=== PATIENT | female | born 1970 | race Caucasian/White ===

== ENCOUNTER → 2017-05-29 | Outpatient (CLI) | payer OTHER ==
--- NOTE | 2017-05-29 12:46 | XR ---
EXAMINATION TYPE: XR lumbosacral spine min 4V , 5 VIEWS DATE OF EXAM ORDERED: 05/29/2017 HISTORY: [id number] lbp,ddd. COMPARISON: None. FINDINGS: Vertebral body height and alignment are maintained. There is no spondylolysis or spondylol isthesis. There is mild hypertrophic spondylosis at T12-L1 and L1-2. The facets are unremarkable. The pedicles are intact. IMPRESSION: 1. NO ACUTE OSSEOUS LESION. 2. MINIMAL DEGENERATIVE CHANGE.
== END | disposition home or self-care (01) ==
LOC: RADXRYALE 11:30
PROVIDERS: ATTEND Family Medicine
DX: M47.817 Spondylosis without myelopathy or radiculopathy, lumbosacral region (principal)
CPT/HCPCS: 72110

== ENCOUNTER → 2017-12-09 | Outpatient (CLI) | payer OTHER ==
--- NOTE | 2017-12-09 15:43 | XR ---
EXAMINATION TYPE: XR chest 2V DATE OF EXAM: 12/09/2017 COMPARISON: NONE TECHNIQUE: PA and lateral views submitted. HISTORY: Cough and fever FINDINGS: The lungs are clear and there is no pneumothorax, pleural effusion, or focal pneumonia. Hypertrophi c and degenerative change of the spine. IMPRESSION: 1. No acute process.
== END | disposition home or self-care (01) ==
LOC: RADXRYALE 14:06
PROVIDERS: ATTEND Physician Assistant Medical
DX: R05 Cough (principal)
CPT/HCPCS: 71046

== ENCOUNTER → 2018-08-13 | Outpatient (CLI) | payer OTHER ==
[2018-08-13 16:26] LABS: Progesterone 0.3 ng/mL
== END | disposition home or self-care (01) ==
LOC: LABWHC1 11:14
PROVIDERS: ATTEND Obstetrics & Gynecology
DX: N94.3 Premenstrual tension syndrome (principal); N92.6 Irregular menstruation, unspecified
CPT/HCPCS: 36415; 82670; 83001; 84144; 84403

== ENCOUNTER → 2018-09-22 | Outpatient (CLI) | payer OTHER ==
--- NOTE | 2018-09-22 14:03 | MR ---
EXAMINATION TYPE: MR cervical spine wo con DATE OF EXAM: 09/22/2018 COMPARISON: None HISTORY: Cervicalgia TECHNIQUE: Multiplanar, multisequence images of the cervical spine were acquired. C2-C3: No evidence for degenerative disc disease. No disc bulge/herniation or protrusion. No Canal stenosis. Foramina are patent bilaterally. C3-C4: No evidence for degenerative disc disease. No disc bulge/herniation or protrusion. No Canal stenosis. Foramina are patent bilaterally. C4-C5: No disc bulge/herniation or protrusion. No Canal stenosis. Foramina are patent bilaterally. C5-C6: Posterior extension endplate disc complex causes minimal anterior mass effect on the thecal sa c. Lateral extension endplate disc complex encroaches mildly on the foramina left greater than right. C6-C7: Small posterior disc bulge is eccentric towards the left causing slight anterior lateral mass effect on the thecal sac. Only mild left-sided foraminal encroachment, no significant central stenosi s. C7-T1: No evidence for degenerative disc disease. No disc bulge/herniation or protrusion. No Canal stenosis. Foramina are patent bilaterally. Cervical segments are intact. There is normal alignment. Cervical spinal cord is of normal signal. Craniovertebral junction relationships are within normal limits. There is a slight spinal curvature . Loss of disc height and signal is present at C5-6 and C4-5, C6-7 compatible disc desiccation and de generative disc disease, there is some mild spondylosis, possible small hemangioma C7 vertebral body IMPRESSION: Mild degenerative disc disease and foraminal encroachment.
== END | disposition home or self-care (01) ==
LOC: RADMRIMAIN 09:09
PROVIDERS: ATTEND Physical Medicine & Rehabilitation
DX: M50.323 Other cervical disc degeneration at C6-C7 level (principal)
CPT/HCPCS: 72141

== ENCOUNTER → 2019-08-09 | Outpatient (CLI) | payer OTHER ==
--- NOTE | 2019-08-10 08:40 | US ---
EXAMINATION TYPE: US carotid duplex BILAT DATE OF EXAM: 08/09/2019 COMPARISON: NONE CLINICAL HISTORY: R42 dizziness; Dizziness especially when turns head to left. EXAM MEASUREMENTS: RIGHT: Peak Systolic Velocity (PSV) cm/sec ----- Right CCA: 64.5 ----- Right ICA: 74.5 ----- Right ECA: 54.6 ICA/CCA ratio: 1.2 RIGHT: End Diastole cm/sec ----- Right CCA: 24.9 ----- Right ICA: 39.2 ----- Right ECA: 9.5 LEFT: Peak Systolic Velocity (PSV) cm/sec ----- Left CCA: 71.2 ----- Left ICA: 70.1 ----- Left ECA: 62.7 ICA/CCA ratio: 1.0 LEFT: End Diastole cm/sec ----- Left CCA: 24.8 ----- Left ICA: 29.1 ----- Left ECA: 15.4 VERTEBRALS (direction of flow): Right Vertebral: Antegrade Left Vertebral: Antegrade Rhythm: Normal Mild intimal wall thickening is noted at bilateral carotid bifurcation, but PSV is wnl bilaterally. IMPRESSION: Mild degree of grayscale atheromatous plaquing with no sonographically evident hemodynam ically significant stenosis within either visualized carotid arterial system. Criteria for Assigning % of Stenosis / Diameter reduction (Estimation based on the indirect measurements of the internal carotid artery velocities (ICA PSV). 1. Normal (no stenosis)=ICA PSV < 125 cm/s: ratio < 2.0: ICA EDV<40 cm/s. 2. Less than 50% stenosis=ICA PSV < 125 cm/s: ratio < 2.0: ICA EDV<40 cm/s. 3. 50 to 69% stenosis=ICA PSV of 125 to 230 cm/s: ration 2.0 ? 4.0: ICA EDV 40-100 cm/s. 4. Greater than 70% stenosis to near occlusion= ICA PSV > 230 cm/s: ratio > 4.0: ICA EDV > 100 cm/s. 5. Near occlusion= ICA PSV velocities may be low or undetectable: variable ratio and ICA EDV. 6. Total occlusion=unable to detect flow.
== END | disposition home or self-care (01) ==
LOC: RADUSWWP 16:13
PROVIDERS: ATTEND Family Medicine
DX: I65.23 Occlusion and stenosis of bilateral carotid arteries (principal)
CPT/HCPCS: 93880

== ENCOUNTER → 2020-09-26 | Outpatient (CLI) | payer OTHER ==
--- NOTE | 2020-09-26 17:15 | US ---
EXAMINATION TYPE: US abdomen complete DATE OF EXAM: 09/26/2020 COMPARISON: None CLINICAL HISTORY: 50-year-old female G89.29 OTHER chronic PAIN, R194 CHANGE IN BOWEL HABITS,R197. Bernadette rrhea. Flank pain TECHNIQUE: Multiple sonographic images of the abdomen are obtained. FINDINGS: EXAM MEASUREMENTS: Liver Length: 15.9 cm Gallbladder Wall: 0.2 cm CBD: 0.5 cm Spleen: 9.5 cm Right Kidney: 10.6 x 4.1 x 4.7 cm Left Kidney: 11.1 x 5.8 x 5.4 cm Pancreas: Suboptimal visualization of the pancreatic head and tail due to shadowing from bowel gas. Visualized body shows no gross abnormality. Liver: Echogenic with coarsened echotexture. There is a hypoechoic area visualized in the posterior l eft liver lobe measuring 1.8 x 1.3 x 1.9 cm . Gallbladder: Echogenic focus visualized measuring 0.6 cm either gallbladder wall polyps or gallstone . No abnormal gallbladder distention or wall thickening. Evidence for sonographic Craft's sign: No CBD: wnl Spleen: wnl Right Kidney: No hydronephrosis. Left Kidney: No hydronephrosis, upper pole cortical cyst measuring 2.2 cm. Upper IVC: wnl Abd Aorta: wnl IMPRESSION: 1. Moderate to severe hepatic steatosis. 2. A vague 1.9 cm lesion in the posterior left liver lobe. Possible area of focal fatty sparing. Thre e-month follow-up ultrasound recommended to reassess. If any enlargement is noted at that time, furth er evaluation with CT or MRI is recommended. 3. Either a 6 mm gallstone or a gallbladder wall polyp. It should also be reassessed at the patient's follow-up exam. 4. A 2.2 cm benign cyst in the upper pole of the left kidney.
== END | disposition home or self-care (01) ==
LOC: RADUSWWP 12:34
PROVIDERS: ATTEND Family Medicine
DX: K76.0 Fatty (change of) liver, not elsewhere classified (principal); N28.1 Cyst of kidney, acquired; K76.9 Liver disease, unspecified; G89.29 Other chronic pain
CPT/HCPCS: 76700

== ENCOUNTER → 2020-12-12 | Outpatient (CLI) | payer OTHER ==
--- NOTE | 2020-12-12 11:57 | US ---
EXAMINATION TYPE: US abdomen complete DATE OF EXAM: 12/12/2020 COMPARISON: Ultrasound September 26, 2020. CT September 30, 2015 CLINICAL HISTORY: R19.4 change in bowel habits, R19.7 Diarrhea,R932. diarrhea EXAM MEASUREMENTS: Liver Length: 15.7 cm Gallbladder Wall: 0.2 cm CBD: 0.3 cm Spleen: 9.6 cm Right Kidney: 10.9 x 4.3 x 5.6 cm Left Kidney: 10.9 x 4.8 x 4.5 cm Pancreas: Tail obscured by overlying bowel gas Liver: attenuating, heterogeneous, hypoechoic area = 2.3 x 1.5 x 2.1cm presumed focal fatty sparing Gallbladder: 2 echogenic foci noted = 0.4cm Evidence for sonographic Craft's sign: no CBD: appears wnl Spleen: wnl Right Kidney: no evidence of hydronephrosis Left Kidney: cystic area upper pole = 1.7 x 1.8 x 1.6cm Upper IVC: Obscured by overlying bowel gas Abd Aorta: wnl The visualized liver is heterogeneously hyperechoic. Suboptimal evaluation for focal masses due to th e heterogeneity. No worrisome intrahepatic ductal dilatation. Findings consistent with diffuse fatty infiltration. Poor visualization of IVC. Visualized abdominal aorta are within normal limits. There is no evidence of shadowing mobile cholelithiasis. There are 2 subcentimeter nonmobile nonshadowing p olyps. Common bile duct is unremarkable. The visualized portions of the pancreas are homogenous. Th e spleen is unremarkable. Kidneys are symmetric and free of hydronephrosis. Incidental 1.7 cm simple appearing thin-walled cyst upper pole of the left kidney laterally corresponds to CT axial image 55 series 6. IMPRESSION: Diffuse fatty infiltration liver redemonstrated. No new or acute findings are seen. Vague hypoechoic area in the liver is slightly larger in size and more irregular on images saved, I do fav or focal fatty sparing but because of this further investigation with repeat liver protocol contrast enhanced CT or MRI is advised to exclude enlarging solid mass.
== END | disposition home or self-care (01) ==
LOC: RADUSWWP 10:43
PROVIDERS: ATTEND Family Medicine
DX: K76.0 Fatty (change of) liver, not elsewhere classified (principal); R93.2 Abnormal findings on diagnostic imaging of liver and biliary tract
CPT/HCPCS: 76700

== ENCOUNTER → 2021-01-02 | Outpatient (CLI) | payer OTHER ==
--- NOTE | 2021-01-03 09:47 | CT ---
EXAMINATION TYPE: CT abdomen w con DATE OF EXAM: 01/02/2021 COMPARISON: 09/30/2015, ultrasound 12/12/2020 INDICATION: abnormal liver US DLP: 833.1 mGycm, Automated exposure control for dose reduction was used. CONTRAST: 100 mL of Isovue 300. Study performed with Oral Contrast TECHNIQUE: Axial images were obtained from above the diaphragm to the pubic rami in the axial plane a t 5 mm thick sections. Reconstructed images are reviewed on the computer in the coronal plane. FINDINGS: Limited CT sections are obtained the lung bases. Scattered subsegmental infiltrates at the lung base s. Correlate for subsegmental atelectasis.. CT ABDOMEN: Liver: There is moderate fatty infiltration throughout the liver. There may be some sparing within th e caudate lobe. Very subtle focal sparing near the gallbladder bed fossa may be present. This appears to correspond to the finding on the ultrasound. Spleen: Normal Pancreas: Normal Adrenal glands: The adrenal glands are normal. Gallbladder: Normal. Suspected polyps by ultrasound not identified on CT. Kidneys: No masses are evident. No hydronephrosis is present. 1.9 cm exophytic cyst measuring 25 Ho unsfield units superior lateral left kidney Delayed images were obtained through the kidneys, which remain unremarkable. Aorta: Vascular calcification is within the aorta. Inferior vena cava: Normal. Loops of bowel within the abdomen and upper pelvis are normal. There are loops of bowel lack oral contrast limiting their evaluation. Appendix: Normal as visualized. IMPRESSIONS: 1. Moderate fatty infiltration of the liver with some focal sparing in the caudate lobe and within t he right lobe liver appears to correspond to the findings on the ultrasound. 2. 1.9 cm exophytic cyst left kidney. 3. Subsegmental atelectasis likely present bilateral lung bases
== END | disposition home or self-care (01) ==
LOC: RADCTMAIN 17:35
PROVIDERS: ATTEND Family Medicine
DX: K76.0 Fatty (change of) liver, not elsewhere classified (principal); N28.1 Cyst of kidney, acquired; K76.89 Other specified diseases of liver
CPT/HCPCS: 74160; Q9967

== ENCOUNTER 2021-01-29 19:06 | Inpatient (IN) | payer OTHER ==
[2021-01-29 20:06] LABS: Glucose,Whole Blood 131 mg/dL (75-99)
[2021-01-29 20:21] LABS: Basophils % (A) 0 %; Eosinophils % (A) 0 %; HCT 37.5 % (34.0-46.0); Lymphocytes # (A) 1.8 k/uL (1.0-4.8); Lymphocytes % (A) 26 %; MCH 30.3 pg (25.0-35.0); MCHC 34.8 g/dL (31.0-37.0); MCV 87.2 fL (80.0-100.0); Mean Platelet Volume 8.1; Monocytes # (A) 0.2 k/uL (0-1.0); Monocytes % (A) 3 %; Neutrophils # (A) 4.9 k/uL (1.3-7.7); Neutrophils % (A) 69 %; Platelet Count 154 k/uL (150-450); RDW 13.2 % (11.5-15.5); WBC 7.1 k/uL (3.8-10.6)
--- NOTE | 2021-01-29 20:26 | XR ---
EXAMINATION TYPE: XR chest 1V portable DATE OF EXAM: 01/29/2021 COMPARISON: 09/30/2015 HISTORY: Short of breath TECHNIQUE: Single view FINDINGS: There is some patchy interstitial and airspace infiltrates in the lower lung ruano. Heart size is normal. There is no gross heart failure. IMPRESSION: Patchy bilateral lower lobe pneumonia appears new compared to old exam. Normal heart.
--- NOTE | 2021-01-29 20:29 | ED ---
General Adult HPI - General Stated complaint: sob/weak/passing out Time Seen by Provider: 01/29/21 19:56 - History of Present Illness Initial comments: Dictation was produced using [employer] dictation software. please excuse any grammatical, word or spelling errors. This patient was cared for during a federal and state declared state of emergency secondary to Covid 19 Chief Complaint: 50-year-old female presents emergency department for severe lethargy History of Present Illness: Patient's 50-year-old female she's been having URI Covid-type symptoms for the last 3-4 days. History of present illness was obtained by patient's . Patient is a poor historian at this time. She is accompanied by her . contracted Covid 19 recently. Patient does not have any significant comorbidities. She has past medical history of fibromyalgia. No history of chronic pulmonary disease. Patient initially presented to the urgent care however was redirected to come to the emergency Department immediately. Patient alleges he had a low oxygen level at the urgent care. The ROS documented in this emergency department record has been reviewed and confirmed by me. Those systems with pertinent positive or negative responses have been documented in the HPI. All other systems are other negative and/or noncontributory. PHYSICAL EXAM: General Impression: Alert and oriented x3, lethargic HEENT: Normocephalic atraumatic, extra-ocular movements intact, pupils equal and reactive to light bilaterally, mucous membranes moist. Cardiovascular: Heart regular rate and rhythm Chest: no retractions, no tachypnea Abdomen: abdomen soft, non-tender, non-distended, no organomegaly Musculoskeletal: Pulses present and equal in all extremities, no peripheral edema Motor: no focal deficits noted Neurological: CN II-XII grossly intact, no focal motor or sensory deficits noted Skin: Intact with no visualized rashes, pale Psych: Normal affect and mood ED course: 50-year-old female with past medical history fibromyalgia presents to the emergency department for lethargy, signs upon arrival shows hypoxia into the mid 80s. Placed on nonrebreather however had 100% oxygen. Her oxygen was reduced to 5 L nasal cannula. Patient's oxygens were weaned down to 2 L nasal cannula and she is satting at 94%. After evaluation obtained. CBC, coag panel, d-dimer is negative. Our GI blood gas shows pH is 7.53. Oxygen is 99 on 32% FiO2. Bicarb is 19. PCO2 of 23. Rule out panel shows mild acidosis. CRP is elevated at 159.9. No concern for d-dimer. No indication for a CT of the chest. Chest x-ray shows patchy bilateral lower lobe pneumonias. Patient be admitted. Case discussed with Beena Drummond who is willing to accept care on behalf of [facility] hospitalist group. EKG interpretation: Ventricular rate a 7, normal sinus rhythm,. Interval 142, QRS 70, QTc 454. No MT prolongation, no QTC prolongation, no ST or T-wave changes noted. EKG compared to 10/01/2015 showing no changes. Overall, this EKG is unremarkable - Related Data Home Medications Medication Instructions Recorded Confirmed Acetaminophen Tab [Tylenol Tab] 1,000 mg PO Q6HR PRN 01/29/21 01/29/21 Ibuprofen [Motrin Ib] 600 mg PO Q8H PRN 01/29/21 01/29/21 Zinc 50 mg PO DAILY 01/29/21 01/29/21 methylPREDNISolone [Medrol Dose See Taper PO DIRECTED 01/29/21 01/29/21 Pack] Allergies Allergy/AdvReac Type Severity Reaction Status Date / Time No Known Allergies Allergy Verified 01/29/21 21:53 Review of Systems ROS Statement: Those systems with pertinent positive or pertinent negative responses have been documented in the HPI. ROS Other: All systems not noted in ROS Statement are negative. Past Medical History Past Medical History: Fibromyalgia, GERD/Reflux Additional Past Medical History / Comment(s): DUB History of Any Multi-Drug Resistant Organisms: None Reported Past Surgical History: Section Past Anesthesia/Blood Transfusion Reactions: Postoperative Nausea & Vomiting (PONV) Past Psychological History: Anxiety, Depression Past Alcohol Use History: Occasional Additional Past Alcohol Use History / Comment(s): QUIT SMOKING OVER 15 YRS AGO. ONLY SMOKED SOCIALLY Past Drug Use History: Marijuana Additional Drug Use History / Comment(s): USES MARIJUANA 2-3 TIMES A WEEK - Past Family History Father Family Medical History: Diabetes Mellitus Mother Family Medical History: Cancer, Diabetes Mellitus Sister(s) Family Medical History: CVA/TIA Additional Family Medical History / Comment(s): TIA Course Vital Signs 01/29/21 19:54 Temperature 98.5 F Pulse Rate 91 Respiratory 22 Rate Blood Pressure 103/80 O2 Sat by Pulse 97 Oximetry Medical Decision Making - Lab Data Result diagrams: 01/29/21 20:01 01/29/21 20:01 Lab Results 01/29/21 01/29/21 01/29/21 Range/Units 19:55 20:01 20:01 WBC 7.1 (3.8-10.6) k/uL RBC 4.30 (3.80-5.40) m/uL Hgb 13.0 (11.4-16.0) gm/dL Hct 37.5 (34.0-46.0) % MCV 87.2 (80.0-100.0) fL MCH 30.3 (25.0-35.0) pg MCHC 34.8 (31.0-37.0) g/dL RDW 13.2 (11.5-15.5) % Plt Count 154 (150-450) k/uL MPV 8.1 Neutrophils % 69 % Lymphocytes % 26 % Monocytes % 3 % Eosinophils % 0 % Basophils % 0 % Neutrophils # 4.9 (1.3-7.7) k/uL Lymphocytes # 1.8 (1.0-4.8) k/uL Monocytes # 0.2 (0-1.0) k/uL Eosinophils # 0.0 (0-0.7) k/uL Basophils # 0.0 (0-0.2) k/uL PT 10.1 (9.0-12.0) sec INR 0.9 (<1.2) APTT 25.5 (22.0-30.0) sec D-Dimer 0.36 (<0.60) mg/L FEU Sample Site ABG pH (7.35-7.45) ABG pCO2 (35-45) mmHg ABG pO2 (83-108) mmHg ABG HCO3 (21-25) mmol/L ABG Total CO2 (19-24) mmol/L ABG O2 Saturation (94-97) % ABG Base Excess mmol/L Magno Test FiO2 % Sodium (137-145) mmol/L Potassium (3.5-5.1) mmol/L Chloride (98-107) mmol/L Carbon Dioxide (22-30) mmol/L Anion Gap mmol/L BUN (7-17) mg/dL Creatinine (0.52-1.04) mg/dL Est GFR (CKD-EPI)AfAm (>60 ml/min/1.73 sqM) Est GFR (CKD-EPI)NonAf (>60 ml/min/1.73 sqM) Glucose (74-99) mg/dL POC Glucose (mg/dL) 131 H (75-99) mg/dL POC Glu Maintenance Groundskeeper ID Fetterly, Elle Plasma Lactic Acid Marcus (0.7-2.0) mmol/L Calcium (8.4-10.2) mg/dL Ionized Calcium Helio (4.5-5.3) mg/dL Total Bilirubin (0.2-1.3) mg/dL AST (14-36) U/L ALT (4-34) U/L Alkaline Phosphatase (38-126) U/L C-Reactive Protein (<10.0) mg/L Total Protein (6.3-8.2) g/dL Albumin (3.5-5.0) g/dL 01/29/21 01/29/21 01/29/21 Range/Units 20:01 20:01 20:18 WBC (3.8-10.6) k/uL RBC (3.80-5.40) m/uL Hgb (11.4-16.0) gm/dL Hct (34.0-46.0) % MCV (80.0-100.0) fL MCH (25.0-35.0) pg MCHC (31.0-37.0) g/dL RDW (11.5-15.5) % Plt Count (150-450) k/uL MPV Neutrophils % % Lymphocytes % % Monocytes % % Eosinophils % % Basophils % % Neutrophils # (1.3-7.7) k/uL Lymphocytes # (1.0-4.8) k/uL Monocytes # (0-1.0) k/uL Eosinophils # (0-0.7) k/uL Basophils # (0-0.2) k/uL PT (9.0-12.0) sec INR (<1.2) APTT (22.0-30.0) sec D-Dimer (<0.60) mg/L FEU Sample Site Left Radial ABG pH 7.53 H (7.35-7.45) ABG pCO2 23 L (35-45) mmHg ABG pO2 115 H (83-108) mmHg ABG HCO3 19 L (21-25) mmol/L ABG Total CO2 20 (19-24) mmol/L ABG O2 Saturation 99.0 H (94-97) % ABG Base Excess -3.6 mmol/L Magno Test Yes FiO2 32 % Sodium 132 L (137-145) mmol/L Potassium 4.1 (3.5-5.1) mmol/L Chloride 103 (98-107) mmol/L Carbon Dioxide 17 L (22-30) mmol/L Anion Gap 12 mmol/L BUN 12 (7-17) mg/dL Creatinine 0.74 (0.52-1.04) mg/dL Est GFR (CKD-EPI)AfAm >90 (>60 ml/min/1.73 sqM) Est GFR (CKD-EPI)NonAf >90 (>60 ml/min/1.73 sqM) Glucose 140 H (74-99) mg/dL POC Glucose (mg/dL) (75-99) mg/dL POC Glu Maintenance Groundskeeper ID Plasma Lactic Acid Marcus 1.1 (0.7-2.0) mmol/L Calcium 8.8 (8.4-10.2) mg/dL Ionized Calcium Helio 4.4 L (4.5-5.3) mg/dL Total Bilirubin 0.6 (0.2-1.3) mg/dL AST 42 H (14-36) U/L ALT 33 (4-34) U/L Alkaline Phosphatase 79 (38-126) U/L C-Reactive Protein 159.9 H (<10.0) mg/L Total Protein 7.2 (6.3-8.2) g/dL Albumin 4.1 (3.5-5.0) g/dL Disposition Clinical Impression: COVID-19 Disposition: ADMITTED IP TO THIS HOSP Condition: Fair Referrals: Zurdo Garrido DO [Primary Care Provider] - 1-2 days Decision Time: 22:29
[2021-01-29 20:30] LABS: Ionized Calcium 4.4 mg/dL (4.5-5.3)
[2021-01-29 20:43] LABS: ALT 33 U/L (4-34); AST 42 U/L (14-36); African American GFR (CKD) >90 (>60 ml/min/1.73 sqM); Albumin 4.1 g/dL (3.5-5.0); Alkaline Phosphatase 79 U/L (38-126); Anion Gap 12 mmol/L; Blood Urea Nitrogen 12 mg/dL (7-17); Calcium 8.8 mg/dL (8.4-10.2); Carbon Dioxide 17 mmol/L (22-30); Chloride 103 mmol/L (98-107); Glucose 140 mg/dL (74-99); Non-African American GFR(CKD) >90 (>60 ml/min/1.73 sqM); Potassium 4.1 mmol/L (3.5-5.1); Sodium 132 mmol/L (137-145); Total Bilirubin 0.6 mg/dL (0.2-1.3); Total Protein 7.2 g/dL (6.3-8.2)
[2021-01-29 20:46] LABS: Allen Test Performed? Yes
[2021-01-29 20:47] LABS: D-Dimer 0.36 mg/L FEU (<0.60); INR 0.9 (<1.2); Partial Thromboplastin Time 25.5 sec (22.0-30.0); Prothrombin Time 10.1 sec (9.0-12.0)
[2021-01-29 20:48] LABS: ABG HCO3 19 mmol/L (21-25); ABG PCO2 23 mmHg (35-45); ABG PH 7.53 (7.35-7.45); ABG PO2 115 mmHg (83-108)
[2021-01-29 20:50] LABS: ABG Base Excess -3.6 mmol/L; ABG TCO2 20 mmol/L (19-24)
[2021-01-29 20:54] LABS: C Reactive Protein 159.9 mg/L (<10.0)
[2021-01-29] MEDS ORDERED: NALOXONE 0.4 MG/ML 1 ML VIAL IV PRN (22:26)
[2021-01-29] MEDS ORDERED: ONDANSETRON 4 MG/2 ML VIAL IVP PRN (22:26)
[2021-01-29] MEDS: COLCHICINE 0.6 MG EACH PO SCH (23:27)
[2021-01-29] MEDS: ASCORBIC ACID 500 MG TAB PO SCH (23:28)
[2021-01-29] MEDS: CHOLECALCIFEROL 10 MCG (400 IU) TABLET PO SCH (23:28)
[2021-01-29] MEDS: ZINC SULFATE 220 MG CAP PO SCH (23:29)
[2021-01-29] MEDS: DEXAMETHASONE SOD PHOSPHATE 10 MG/ML 1 ML VIAL IV SCH (23:29)
[2021-01-29] MEDS: SODIUM CHLORIDE 0.9% 1,000 ML IV SCH (23:30)
[2021-01-30] MEDS: ACETAMINOPHEN TAB 325 MG TAB PO PRN ×3 (08:28→20:02)
--- NOTE | 2021-01-30 10:45 | P.HPIM ---
History of Present Illness This is a pleasant 50 years old female with past medical history of fibromyalgia, GERD and anxiety and depression Patient presents because of dyspnea. Patient states last Friday about one week ago she started having fever and coughing and soon thereafter followed by body aches and dyspnea, last Friday she felt so weak she was unable to walk. She went to urgent care at [place] where they diagnosed her with pneumonia Patient was diagnosed with bilateral pneumonia at urgent care, where she was started on steroids however patient got diaphoretic and passed out in the waiting room where they help her to sit down, then she passed out for second time in the car and third time of passing out was in the hospital. Usually she feels some abdominal pain and chest pain immediately before she passes out, however she recovers in 1-2 minutes with no confusion, no seizure- like activity, no tongue biting or urinary or bowel incontinence to suspect seizure. He wakes up right away thereafter Patient also has dry cough, vomited once but no diarrhea, She complains from back pain but no leg weakness or numbness. She denies smoking, alcohol or illicit drugs Vitals are stable and patient is afebrile. Her oxygen saturation is 92-94% on 2 L oxygen via nasal cannula Labs show an unremarkable CBC, INR. D-dimer negative at 0.36. ABG showing pH slightly elevated at 7.5, pCO2 is low as 23 and pO2 is elevated at 1:15. Sodium is 132. Rest of BMP is unremarkable, liver enzymes not elevated, C-reactive protein is high at 159. And redness calcium was low at 4.4 [place] not dictated EKG showing normal sinus rhythm at 87 bpm with no significant ST-T changes. Chest x-ray: Patchy bilateral lower lobe pneumonia Review of Systems CONSTITUTIONAL: No fever, no malaise, no fatigue. HEENT: No recent visual problems or hearing problems. Denied any sore throat. CARDIOVASCULAR: No orthopnea, PND, no palpitations, no syncope. PULMONARY: No chest wall tenderness, no hemoptysis. GASTROINTESTINAL: No diarrhea, no nausea, no abdominal pain. Normoactive bowel sounds. NEUROLOGICAL: No headaches, no weakness, no numbness. HEMATOLOGICAL: Denies any bleeding or petechiae. GENITOURINARY: Denies any burning micturition, frequency, or urgency. MUSCULOSKELETAL/RHEUMATOLOGICAL: Denies any joint pain, swelling, or any muscle pain. ENDOCRINE: Denies any polyuria or polydipsia. Past Medical History Past Medical History: Fibromyalgia, GERD/Reflux Additional Past Medical History / Comment(s): DUB History of Any Multi-Drug Resistant Organisms: None Reported Past Surgical History: Section Past Anesthesia/Blood Transfusion Reactions: Postoperative Nausea & Vomiting (PONV) Past Psychological History: Anxiety, Depression Past Alcohol Use History: Occasional Additional Past Alcohol Use History / Comment(s): QUIT SMOKING OVER 15 YRS AGO. ONLY SMOKED SOCIALLY Past Drug Use History: Marijuana Additional Drug Use History / Comment(s): USES MARIJUANA 2-3 TIMES A WEEK - Past Family History Father Family Medical History: Diabetes Mellitus Mother Family Medical History: Cancer, Diabetes Mellitus Sister(s) Family Medical History: CVA/TIA Additional Family Medical History / Comment(s): TIA Medications and Allergies Home Medications Medication Instructions Recorded Confirmed Type Acetaminophen Tab [Tylenol Tab] 1,000 mg PO Q6HR PRN 01/29/21 01/29/21 History Ibuprofen [Motrin Ib] 600 mg PO Q8H PRN 01/29/21 01/29/21 History Zinc 50 mg PO DAILY 01/29/21 01/29/21 History methylPREDNISolone [Medrol Dose See Taper PO DIRECTED 01/29/21 01/29/21 History Pack] Allergies Allergy/AdvReac Type Severity Reaction Status Date / Time No Known Allergies Allergy Verified 01/29/21 21:53 Physical Exam Vitals: Vital Signs Temp Pulse Resp BP Pulse Ox 01/30/21 07:31 94 L 01/30/21 06:38 98.6 F 93 20 123/87 92 L 01/30/21 02:00 78 20 117/81 93 L 01/30/21 01:00 87 18 115/81 92 L 01/30/21 00:00 86 22 116/85 93 L 01/29/21 23:00 84 16 126/94 95 01/29/21 19:54 98.5 F 91 22 103/80 97 Intake and Output 01/29/21 01/30/21 01/30/21 22:59 06:59 14:59 Other: Weight 84.822 kg GENERAL: The patient is alert and oriented x3, not in any acute distress. Well developed, well nourished. HEENT: Pupils are round and equally reacting to light. EOMI. No scleral icterus. No conjunctival pallor. Normocephalic, atraumatic. No pharyngeal erythema. No thyromegaly. CARDIOVASCULAR: S1 and S2 present. No murmurs, rubs, or gallops. PULMONARY: Chest is clear to auscultation, no wheezing or crackles. ABDOMEN: Soft, nontender, nondistended, normoactive bowel sounds. No palpable organomegaly. MUSCULOSKELETAL: No joint swelling or deformity. EXTREMITIES: No cyanosis, clubbing, or pedal edema. NEUROLOGICAL: Gross neurological examination did not reveal any focal deficits. SKIN: No rashes. No petechiae Results CBC & Chem 7: 01/29/21 20:01 01/29/21 20:01 Labs: Abnormal Lab Results - Last 24 Hours (Table) 01/29/21 01/29/21 01/29/21 Range/Units 19:55 20:01 20:18 ABG pH 7.53 H (7.35-7.45) ABG pCO2 23 L (35-45) mmHg ABG pO2 115 H (83-108) mmHg ABG HCO3 19 L (21-25) mmol/L ABG O2 Saturation 99.0 H (94-97) % Sodium 132 L (137-145) mmol/L Carbon Dioxide 17 L (22-30) mmol/L Glucose 140 H (74-99) mg/dL POC Glucose (mg/dL) 131 H (75-99) mg/dL Ionized Calcium Helio 4.4 L (4.5-5.3) mg/dL AST 42 H (14-36) U/L C-Reactive Protein 159.9 H (<10.0) mg/L Coronavirus (PCR) (Not Detectd) 01/29/21 Range/Units 22:31 ABG pH (7.35-7.45) ABG pCO2 (35-45) mmHg ABG pO2 (83-108) mmHg ABG HCO3 (21-25) mmol/L ABG O2 Saturation (94-97) % Sodium (137-145) mmol/L Carbon Dioxide (22-30) mmol/L Glucose (74-99) mg/dL POC Glucose (mg/dL) (75-99) mg/dL Ionized Calcium Helio (4.5-5.3) mg/dL AST (14-36) U/L C-Reactive Protein (<10.0) mg/L Coronavirus (PCR) Detected A (Not Detectd) Assessment and Plan Assessment: Acute, bilateral covid pneumonia Acute Respiratory failure. Decreased inflammatory markers Recurrent syncope 3, suspect vasovagal or orthostatic versus secondary to Covid . Back pain with no leg weakness or numbness GERD History of fibromyalgia History of anxiety and depression, no connective tissue Plan: This is a pleasant 50 years old female who presents with cough and pneumonia and syncope. Continue with vitamin C, zinc, steroids and pulmonary consult We going to check orthostatic vitals, echocardiogram, check troponin and labs and telemetry check TSH, B12 and folate. Continue gentle hydration Labs and medication were reviewed.. Continue same treatment. Continue with symptomatic treatment. Resume home medication. Monitor lytes and vitals. DVT and GI prophylaxis. Further recommendationsas per clinical course of the p atient DVT prophylaxis: Subcutaneous Lovenox GI Prophylaxis: Pepcid Prognosis is guarded
[2021-01-30] MEDS ORDERED: REMDESIVIR 100 MG in SODIUM CHLORIDE 0.9% 250 ML IVPB SCH (11:00)
--- NOTE | 2021-01-30 11:02 | P.CNPUL ---
History of Present Illness Consult date: 01/30/21 Requesting physician: Franky Singh Reason for consult: dyspnea, cough, hypoxemia, pneumonia, abnormal CXR/CT Chief complaint: Shortness of breath, cough, weakness, fatigue. History of present illness: 50-year-old female, who comes to the emergency room, with complaints of shortness of breath. The patient's been sick for about a week. In addition, the patient has muscle aches, joint aches, weakness, fatigue, and cough. When she coughs, the cough is painful. Currently, she is on 2 L nasal cannula. Her primary care from his physician is Dr. Garrido. Other than fibromyalgia, she really doesn't have much in the way of medical problems. She's not receiving any IV fluids. She does complain of fever and chills as well. No nausea, vomiting, or diarrhea. White count of 7.1, hemoglobin 13, hematocrit 37.5, and platelet count 154,000. PT INR and PTT are normal. D-dimer 0.36. Blood gases show a PaO2 of 1:15, PaCO2 of 23, pH is 7.53. This is consistent with a respiratory alkalosis. This was on 32% oxygen. Sodium 132, potassium 4.1, chlorides 103, CO2 18, with an anion gap of 12, BUN 12, and creatinine 0.74. Chest x-ray shows bilateral patchy lower lobe pneumonia. Review of Systems REVIEW OF SYSTEMS: CONSTITUTIONAL: Fatigue, weakness, fever, chills. NEUROLOGIC: [ Negative.] HEENT: [ Negative.] CARDIAC: [Negative.] PULMONARY: Shortness of breath, cough, chest tightness. GI: [Negative.] : [Negative.] RHEUMATOLOGIC: Muscle and joint aches. IMMUNOLOGIC: [ Negative.] ENDOCRINE: [Negative. ] DERMATOLOGIC: [Negative.] Past Medical History Past Medical History: Fibromyalgia, GERD/Reflux Additional Past Medical History / Comment(s): DUB History of Any Multi-Drug Resistant Organisms: None Reported Past Surgical History: Section Past Anesthesia/Blood Transfusion Reactions: Postoperative Nausea & Vomiting (PONV) Past Psychological History: Anxiety, Depression Past Alcohol Use History: Occasional Additional Past Alcohol Use History / Comment(s): QUIT SMOKING OVER 15 YRS AGO. ONLY SMOKED SOCIALLY Past Drug Use History: Marijuana Additional Drug Use History / Comment(s): USES MARIJUANA 2-3 TIMES A WEEK - Past Family History Father Family Medical History: Diabetes Mellitus Mother Family Medical History: Cancer, Diabetes Mellitus Sister(s) Family Medical History: CVA/TIA Additional Family Medical History / Comment(s): TIA Medications and Allergies Home Medications Medication Instructions Recorded Confirmed Type Acetaminophen Tab [Tylenol Tab] 1,000 mg PO Q6HR PRN 01/29/21 01/29/21 History Ibuprofen [Motrin Ib] 600 mg PO Q8H PRN 01/29/21 01/29/21 History Zinc 50 mg PO DAILY 01/29/21 01/29/21 History methylPREDNISolone [Medrol Dose See Taper PO DIRECTED 01/29/21 01/29/21 History Pack] Allergies Allergy/AdvReac Type Severity Reaction Status Date / Time No Known Allergies Allergy Verified 01/29/21 21:53 Physical Exam Osteopathic Statement: *. No significant issues noted on an osteopathic structural exam other than those noted in the History and Physical/Consult. Vitals: Vital Signs Temp Pulse Resp BP Pulse Ox 01/30/21 07:31 94 L 01/30/21 06:38 98.6 F 93 20 123/87 92 L 01/30/21 02:00 78 20 117/81 93 L 01/30/21 01:00 87 18 115/81 92 L 01/30/21 00:00 86 22 116/85 93 L 01/29/21 23:00 84 16 126/94 95 01/29/21 19:54 98.5 F 91 22 103/80 97 Intake and Output 01/29/21 01/30/21 01/30/21 22:59 06:59 14:59 Other: Weight 84.822 kg No acute distress, oriented 3. Patient wearing nasal O2 at 2 L. HEENT examination is grossly unremarkable. Mucous membranes are moist. No oral lesions. Neck supple. Full range of motion. No adenopathy thyromegaly or neck vein distention. Cardiovascular examination reveals regular rhythm rate. S1-S2 normal. No S3 or S4. No discernible murmur noted. Heart rate 93 bpm. Lungs reveal bilateral rhonchi. No wheezes or crackles. Breath sounds equal bilaterally. She coughs when she takes a deep breath. Abdomen soft bowel sounds are heard. No masses or tenderness. Extremities are intact. No cyanosis clubbing or edema. Skin is without rash or lesion. Neurologic examination is brief but nonfocal. Results - Laboratory Findings CBC and BMP: 01/29/21 20:01 01/29/21 20:01 ABG ABG pH 7.53 (7.35-7.45) H 01/29/21 20:18 ABG pCO2 23 mmHg (35-45) L 01/29/21 20:18 ABG pO2 115 mmHg (83-108) H 01/29/21 20:18 ABG O2 Saturation 99.0 % (94-97) H 01/29/21 20:18 PT/INR, D-dimer PT 10.1 sec (9.0-12.0) 01/29/21 20:01 INR 0.9 (<1.2) 01/29/21 20:01 D-Dimer 0.36 mg/L FEU (<0.60) 01/29/21 20:01 Abnormal lab findings: Abnormal Labs 01/29/21 01/29/21 01/29/21 19:55 20:01 20:18 ABG pH 7.53 H ABG pCO2 23 L ABG pO2 115 H ABG HCO3 19 L ABG O2 Saturation 99.0 H Sodium 132 L Carbon Dioxide 17 L Glucose 140 H POC Glucose (mg/dL) 131 H Ionized Calcium Helio 4.4 L AST 42 H C-Reactive Protein 159.9 H Coronavirus (PCR) 01/29/21 22:31 ABG pH ABG pCO2 ABG pO2 ABG HCO3 ABG O2 Saturation Sodium Carbon Dioxide Glucose POC Glucose (mg/dL) Ionized Calcium Helio AST C-Reactive Protein Coronavirus (PCR) Detected A - Diagnostic Findings Chest x-ray: image reviewed Assessment and Plan Assessment: Acute COVID 19 pneumonitis/pneumonia. History of fibromyalgia. Mild/moderate hypoxemia secondary to COVID 19 pneumonia. History of gastroesophageal reflux disease. Plan: The patient should get REM. The patient should also get vitamin C, vitamin D3, and zinc. In addition, the patient should be given Lovenox 40 mg subcu daily, and Decadron 6 mg either orally or IV daily. We will continue to follow. Prognosis is guarded. We'll continue to make recommendations were appropriate. Patient should have repeat chest x-ray in a day or so, and inflammatory markers every 2 or 3 days. Time with Patient: Greater than 30
[2021-01-30] MEDS: ASCORBIC ACID 500 MG TAB PO SCH (11:17)
[2021-01-30] MEDS: PANTOPRAZOLE 40 MG/10 ML VIAL IV SCH (11:17)
[2021-01-30] MEDS: ENOXAPARIN 40 MG/0.4 ML SYRINGE SQ SCH (11:18)
[2021-01-30] MEDS: DEXAMETHASONE SOD PHOSPHATE 10 MG/ML 1 ML VIAL IV SCH (11:18)
[2021-01-30] MEDS: COLCHICINE 0.6 MG EACH PO SCH ×2 (11:19→22:26)
[2021-01-30] MEDS: CHOLECALCIFEROL 10 MCG (400 IU) TABLET PO SCH (11:19)
[2021-01-30] MEDS: ZINC SULFATE 220 MG CAP PO SCH (11:20)
[2021-01-30] MEDS: FAMOTIDINE 20 MG TAB PO SCH (11:21)
[2021-01-30] MEDS ORDERED: REMDESIVIR 200 MG in SODIUM CHLORIDE 0.9% 250 ML IVPB ONE (11:30)
[2021-01-30 11:35] LABS: African American GFR (CKD) >90 (>60 ml/min/1.73 sqM); Anion Gap 10 mmol/L; Blood Urea Nitrogen 11 mg/dL (7-17); Calcium 8.9 mg/dL (8.4-10.2); Carbon Dioxide 23 mmol/L (22-30); Chloride 106 mmol/L (98-107); Glucose 149 mg/dL (74-99); LDH 714 U/L (313-618); Non-African American GFR(CKD) >90 (>60 ml/min/1.73 sqM); Potassium 4.1 mmol/L (3.5-5.1); Sodium 139 mmol/L (137-145)
[2021-01-30 12:43] LABS: T4, Free (Free Thyroxine) 0.99 ng/dL (0.78-2.19)
[2021-01-30 23:58] LABS: Folate, Serum >24.0 ng/mL
[2021-01-31] MEDS: ACETAMINOPHEN TAB 325 MG TAB PO PRN ×3 (01:38→14:00)
[2021-01-31] MEDS: SODIUM CHLORIDE 0.9% 1,000 ML IV SCH ×2 (01:39→21:47)
[2021-01-31] MEDS: FAMOTIDINE 20 MG TAB PO SCH (08:22)
[2021-01-31] MEDS: ZINC SULFATE 220 MG CAP PO SCH (08:22)
[2021-01-31] MEDS: ASCORBIC ACID 500 MG TAB PO SCH (08:22)
[2021-01-31] MEDS: COLCHICINE 0.6 MG EACH PO SCH ×2 (08:23→20:30)
[2021-01-31] MEDS: PANTOPRAZOLE 40 MG/10 ML VIAL IV SCH (08:23)
[2021-01-31] MEDS: DEXAMETHASONE SOD PHOSPHATE 10 MG/ML 1 ML VIAL IV SCH (08:23)
[2021-01-31] MEDS: CHOLECALCIFEROL 10 MCG (400 IU) TABLET PO SCH (08:23)
[2021-01-31] MEDS: ENOXAPARIN 40 MG/0.4 ML SYRINGE SQ SCH (08:24)
--- NOTE | 2021-01-31 10:00 | ECHOF ---
Referral Reason:Rule out heart disease MEASUREMENTS -------- HEIGHT: 162.6 cm WEIGHT: 84.8 kg BP: 123/87 RVIDd: 2.6 cm (< 3.3) IVSd: 1.1 cm (0.6 - 1.1) LVIDd: 4.1 cm (3.9 - 5.3) LVPWd: 1.0 cm (0.6 - 1.1) IVSs: 1.5 cm LVIDs: 2.8 cm LVPWs: 1.4 cm LA Diam: 2.7 cm (2.7 - 3.8) LAESV Index (A-L): 23.92 ml/m Ao Diam: 2.9 cm (2.0 - 3.7) AV Cusp: 1.8 cm (1.5 - 2.6) MV EXCURSION: 18.742 mm (> 18.000) MV EF SLOPE: 99 mm/s (70 - 150) EPSS: 0.6 cm MV E Felix: 0.75 m/s MV DecT: 202 ms MV A Felix: 0.67 m/s MV E/A Ratio: 1.13 RAP: 5.00 mmHg RVSP: 25.57 mmHg FINDINGS -------- Sinus rhythm. This was a technically good study. The left ventricular size is normal. There is borderline concentric left ventricular hypertrophy. Overall left ventricular systolic function is normal with, an EF between 60 - 65 %. The right ventricle is normal in size. Normal LA size by volume 22+/-6 ml/m2. The right atrium is normal in size. Interatrial and interventricular septum intact. The aortic valve is trileaflet, and appears structurally normal. No aortic stenosis or regurgitation. The mitral valve is normal. Mild tricuspid regurgitation present. Right ventricular systolic pressure is normal at < 35 mmHg. There is no pulmonic regurgitation present. The aortic root size is normal. Normal inferior vena cava with normal inspiratory collapse consistent with estimated right atrial pre ssure of 5 mmHg. There is no pericardial effusion. CONCLUSIONS -------- 1. The left ventricular size is normal. 2. There is borderline concentric left ventricular hypertrophy. 3. Overall left ventricular systolic function is normal with, an EF between 60 - 65 %. 4. Mild tricuspid regurgitation present. 5. There is no pericardial effusion. MEDICAL LEGAL INVESTIGATOR: Roselyn Dougherty RDCS
--- NOTE | 2021-01-31 12:39 | P.PN ---
Subjective Progress Note Date: 01/31/21 Principal diagnosis: CoVID 19 pneumonitis 50-year-old female, who comes to the emergency room, with complaints of shortness of breath. The patient's been sick for about a week. In addition, the patient has muscle aches, joint aches, weakness, fatigue, and cough. When she coughs, the cough is painful. Currently, she is on 2 L nasal cannula. Her primary care from his physician is Dr. Garrido. Other than fibromyalgia, she really doesn't have much in the way of medical problems. She's not receiving any IV fluids. She does complain of fever and chills as well. No nausea, vomiting, or diarrhea. White count of 7.1, hemoglobin 13, hematocrit 37.5, and platelet count 154,000. PT INR and PTT are normal. D-dimer 0.36. Blood gases show a PaO2 of 1:15, PaCO2 of 23, pH is 7.53. This is consistent with a respiratory alkalosis. This was on 32% oxygen. Sodium 132, potassium 4.1, chlorides 103, CO2 18, with an anion gap of 12, BUN 12, and creatinine 0.74. Chest x-ray shows bilateral patchy lower lobe pneumonia. The patient is seen today 01/31/2021 in follow-up on the regular medical floor. He is currently sitting up in bed. Awake and alert in no acute distress. Currently on 3 L/m per nasal cannula maintaining O2 saturations in the 90s. This is day #2 of Remdesivir. She is also on Decadron, Lovenox, multivitamins, colchicine. Sodium 139. Potassium 4.1. Creatinine 0.54. LDH 714. C-reactive protein 149. Echocardiogram revealed preserved left ventricular systolic function with ejection fraction 60-65%. Objective - Vital Signs Vital signs: Vital Signs Temp 99.3 F 01/31/21 08:00 Pulse 96 01/31/21 08:00 Resp 18 01/31/21 08:00 BP 149/82 01/31/21 08:00 Pulse Ox 94 L 01/31/21 08:00 Intake & Output 01/30/21 01/31/21 01/31/21 18:59 06:59 18:59 Intake Total 550 Balance 550 Intake: Oral 550 Other: Voiding Method Toilet # Voids 3 - Exam GENERAL EXAM: Alert, pleasant 50 female patient, on 3 L comfortable in no apparent distress. HEAD: Normocephalic. EYES: Normal reaction of pupils, equal size. NOSE: Clear with pink turbinates. THROAT: No erythema or exudates. NECK: No masses, no JVD. CHEST: No chest wall deformity. LUNGS: Equal air entry with coarse crackles in the posterior bases. CVS: S1 and S2 normal with no audible murmur, regular rhythm. ABDOMEN: No hepatosplenomegaly, normal bowel sounds, no guarding or rigidity. SPINE: No scoliosis or deformity SKIN: No rashes CENTRAL NERVOUS SYSTEM: No focal deficits, tone is normal in all 4 extremities. EXTREMITIES: There is no peripheral edema. No clubbing, no cyanosis. Peripheral pulses are intact. - Labs CBC & Chem 7: 01/29/21 20:01 01/30/21 10:52 Assessment and Plan Assessment: 1 Acute hypoxemic respiratory failure secondary to CoVID 19 pneumonia/pneumonitis. Receiving Remdesivir 2 History of fibromyalgia. 3 Gastroesophageal reflux disease Plan: The patient was seen and evaluated by Dr. Cleveland Mckee #2 of Remdesivir Continue Lovenox, Decadron, colchicine, multivitamins Increase her activity as tolerated Titrate down the FiO2 as tolerated Follow-up chest x-ray, inflammatory markers in the a.m. We'll continue to follow I, the cosigning physician, performed a history & physical examination of the patient. Lungs sounds with coarse crackles in bilateral posterior bases. Maintaining good O2 saturations in the 90s on 3 L/m per nasal cannula. I discussed the assessment and plan of care with my nurse practitioner, Pamela Sanchez. I attest to the above note as dictated by her.
[2021-01-31] MEDS: REMDESIVIR 100 MG in SODIUM CHLORIDE 0.9% 250 ML IVPB SCH (13:56)
[2021-01-31] MEDS ORDERED: HYDROcodone/APAP 5-325MG 1 EACH TAB PO PRN (15:36)
--- NOTE | 2021-01-31 15:42 | P.PN ---
Subjective This is a pleasant 50 years old female with past medical history of fibromyalgia, GERD and anxiety and depression Patient presents because of dyspnea. Patient states last Friday about one week ago she started having fever and coughing and soon thereafter followed by body aches and dyspnea, last Friday she felt so weak she was unable to walk. She went to urgent care at [facility] where they diagnosed her with pneumonia Patient was diagnosed with bilateral pneumonia at urgent care, where she was started on steroids however patient got diaphoretic and passed out in the waiting room where they help her to sit down, then she passed out for second time in the car and third time of passing out was in the hospital. Usually she feels some abdominal pain and chest pain immediately before she passes out, however she recovers in 1-2 minutes with no confusion, no seizure- like activity, no tongue biting or urinary or bowel incontinence to suspect seizure. He wakes up right away thereafter Patient also has dry cough, vomited once but no diarrhea, She complains from back pain but no leg weakness or numbness. She denies smoking, alcohol or illicit drugs Vitals are stable and patient is afebrile. Her oxygen saturation is 92-94% on 2 L oxygen via nasal cannula Labs show an unremarkable CBC, INR. D-dimer negative at 0.36. ABG showing pH slightly elevated at 7.5, pCO2 is low as 23 and pO2 is elevated at 1:15. Sodium is 132. Rest of BMP is unremarkable, liver enzymes not elevated, C-reactive protein is high at 159. And redness calcium was low at 4.4 [place] not dictated EKG showing normal sinus rhythm at 87 bpm with no significant ST-T changes. Chest x-ray: Patchy bilateral lower lobe pneumonia 01/31/2021 Patient breathing easier today, her dyspnea is improving but not completely resolved. No more dizziness or syncope episode. She still complaining of from back pain but actually she points to the left lower chest from behind with tender area. We added Lee 5 and lidocaine patch She has low-grade temperature today 100.6, oxygen saturation is at 2 L, no labs from today. She is currently on remdesivir and dexamethasone, vitamin C, D and zinc. Echocardiogram showed ejection fraction of 60-65% TSH, B12 and folate are unremarkable Repeat chest x-ray and inflammatory markers tomorrow Review of Systems CONSTITUTIONAL: No fever, no malaise, no fatigue. HEENT: No recent visual problems or hearing problems. Denied any sore throat. CARDIOVASCULAR: No orthopnea, PND, no palpitations, no syncope. PULMONARY: No chest wall tenderness, no hemoptysis. GASTROINTESTINAL: No diarrhea, no nausea, no abdominal pain. Normoactive bowel sounds. NEUROLOGICAL: No headaches, no weakness, no numbness. Active Medications Generic Name Dose Route Start Last Admin Trade Name Freq PRN Reason Stop Dose Admin Acetaminophen 650 mg 01/29/21 22:26 01/31/21 14:00 Acetaminophen Tab 325 Mg Tab PO 650 mg Q6HR PRN Administration Mild Pain or Fever > 100.5 Ascorbic Acid 500 mg 01/29/21 23:00 01/31/21 08:22 Ascorbic Acid 500 Mg Tab PO 500 mg DAILY MARLENE Administration Cholecalciferol 10 mcg 01/29/21 23:00 01/31/21 08:23 Cholecalciferol 10 Mcg (400 Iu) Tablet PO 10 mcg DAILY MARLENE Administration Colchicine 0.6 mg 01/29/21 23:00 01/31/21 08:23 Colchicine 0.6 Mg Each PO 0.6 mg BID MARLENE Administration Dexamethasone Sodium Phosphate 6 mg 01/29/21 23:00 01/31/21 08:23 Dexamethasone Sod Phosphate 10 Mg/Ml 1 Ml Vial IV 6 mg DAILY MARLENE Administration Enoxaparin Sodium 40 mg 01/30/21 09:00 01/31/21 08:24 Enoxaparin 40 Mg/0.4 Ml Syringe SQ 40 mg DAILY MARLENE Administration Famotidine 40 mg 01/30/21 09:00 01/31/21 08:22 Famotidine 20 Mg Tab PO 40 mg DAILY MARLENE Administration Sodium Chloride 1,000 mls @ 20 mls/hr 01/29/21 22:30 01/31/21 01:39 Saline 0.9% IV 20 mls/hr .Q24H MARLENE Administration Remdesivir 100 mg/ Sodium 250 mls @ 250 mls/hr 01/31/21 11:00 01/31/21 13:56 Chloride IVPB 02/03/21 11:59 250 mls/hr DAILY@1100 MARLENE Administration Naloxone HCl 0.2 mg 01/29/21 22:26 Naloxone 0.4 Mg/Ml 1 Ml Vial IV Q2M PRN Opioid Reversal Ondansetron HCl 4 mg 01/29/21 22:26 01/31/21 01:39 Ondansetron 4 Mg/2 Ml Vial IVP 4 mg Q8HR PRN Administration Nausea And Vomiting Pantoprazole Sodium 40 mg 01/30/21 09:00 01/31/21 08:23 Pantoprazole 40 Mg/10 Ml Vial IV 40 mg DAILY MARLENE Administration Zinc Sulfate 220 mg 01/29/21 23:00 01/31/21 08:22 Zinc Sulfate 220 Mg Cap PO 220 mg DAILY MARLENE Administration Objective - Vital Signs Vital signs: Vital Signs Temp 97.9 F 01/31/21 14:00 Pulse 87 01/31/21 14:00 Resp 18 01/31/21 14:00 BP 113/71 01/31/21 14:00 Pulse Ox 100 01/31/21 14:00 Intake & Output 01/30/21 01/31/21 01/31/21 18:59 06:59 18:59 Intake Total 550 Balance 550 Intake: Oral 550 Other: Voiding Method Toilet # Voids 3 - Labs CBC & Chem 7: 01/29/21 20:01 01/30/21 10:52 Assessment and Plan Assessment: Acute, bilateral covid pneumonia Acute Respiratory failure. Decreased inflammatory markers Recurrent syncope 3, suspect vasovagal or orthostatic versus secondary to Covid. Back pain with no leg weakness or numbness GERD History of fibromyalgia History of anxiety and depression, no connective tissue Plan: This is a pleasant 50 years old female who presents with cough and pneumonia and syncope. Continue with vitamin C, zinc, steroids and redmesivir per pulmonary consult recommendations We going to check orthostatic vitals and telemetry Continue gentle hydration Labs and medication were reviewed.. Continue same treatment. Continue with symptomatic treatment. Resume home medication. Monitor lytes and vitals. DVT and GI prophylaxis. Further recommendationsas per clinical course of the patient DVT prophylaxis: Subcutaneous Lovenox GI Prophylaxis: Pepcid Prognosis is guarded
[2021-01-31] MEDS: LIDOCAINE 5% PATCH TOPICAL SCH (16:48)
[2021-02-01] MEDS: ACETAMINOPHEN TAB 325 MG TAB PO PRN ×2 (02:51→09:42)
[2021-02-01] MEDS: ENOXAPARIN 40 MG/0.4 ML SYRINGE SQ SCH (08:06)
[2021-02-01] MEDS: LIDOCAINE 5% PATCH TOPICAL SCH (08:06)
[2021-02-01] MEDS: COLCHICINE 0.6 MG EACH PO SCH (08:07)
[2021-02-01] MEDS: FAMOTIDINE 20 MG TAB PO SCH (08:07)
[2021-02-01] MEDS: DEXAMETHASONE SOD PHOSPHATE 10 MG/ML 1 ML VIAL IV SCH (08:07)
[2021-02-01] MEDS: ASCORBIC ACID 500 MG TAB PO SCH (08:07)
[2021-02-01] MEDS: CHOLECALCIFEROL 10 MCG (400 IU) TABLET PO SCH (08:07)
[2021-02-01] MEDS: ZINC SULFATE 220 MG CAP PO SCH (08:07)
[2021-02-01] MEDS: PANTOPRAZOLE 40 MG/10 ML VIAL IV SCH (08:08)
--- NOTE | 2021-02-01 10:20 | XR ---
EXAMINATION TYPE: XR chest 1V portable DATE OF EXAM: 02/01/2021 COMPARISON: Chest x-ray 01/29/2021 HISTORY: Covid pneumonia TECHNIQUE: Single frontal view of the chest is obtained. FINDINGS: Bilateral airspace disease is again noted. Lung volumes are lower. Cardiac mediastinal jackie houette is likely stable. No evident pneumothorax or pleural effusion. IMPRESSION: Correlate for pneumonia.
[2021-02-01] MEDS: REMDESIVIR 100 MG in SODIUM CHLORIDE 0.9% 250 ML IVPB SCH (12:04)
--- NOTE | 2021-02-01 12:59 | P.PN ---
Subjective Progress Note Date: 02/01/21 Principal diagnosis: CoVID 19 pneumonitis 50-year-old female, who comes to the emergency room, with complaints of shortness of breath. The patient's been sick for about a week. In addition, the patient has muscle aches, joint aches, weakness, fatigue, and cough. When she coughs, the cough is painful. Currently, she is on 2 L nasal cannula. Her primary care from his physician is Dr. Garrido. Other than fibromyalgia, she really doesn't have much in the way of medical problems. She's not receiving any IV fluids. She does complain of fever and chills as well. No nausea, vomiting, or diarrhea. White count of 7.1, hemoglobin 13, hematocrit 37.5, and platelet count 154,000. PT INR and PTT are normal. D-dimer 0.36. Blood gases show a PaO2 of 1:15, PaCO2 of 23, pH is 7.53. This is consistent with a respiratory alkalosis. This was on 32% oxygen. Sodium 132, potassium 4.1, chlorides 103, CO2 18, with an anion gap of 12, BUN 12, and creatinine 0.74. Chest x-ray shows bilateral patchy lower lobe pneumonia. The patient is seen today 01/31/2021 in follow-up on the regular medical floor. He is currently sitting up in bed. Awake and alert in no acute distress. Currently on 3 L/m per nasal cannula maintaining O2 saturations in the 90s. This is day #2 of Remdesivir. She is also on Decadron, Lovenox, multivitamins, colchicine. Sodium 139. Potassium 4.1. Creatinine 0.54. LDH 714. C-reactive protein 149. Echocardiogram revealed preserved left ventricular systolic function with ejection fraction 60-65%. The patient is seen today 02/01/2021 in follow-up on the regular medical floor. She is currently resting comfortably in bed. Awake and alert in no acute distress. She is still requiring 2 L to maintain O2 saturations in the 90s. Chest x-ray continues to show bilateral patchy infiltrates. This is day #3 of her Remdesivir. She remains on Decadron, Lovenox, vitamin supplements. D-dimer 0.42. LDH 366. C-reactive protein 6.0. She is feeling stronger today, less short of breath. Objective - Vital Signs Vital signs: Vital Signs Temp 97.5 F L 02/01/21 08:00 Pulse 49 L 02/01/21 08:00 Resp 20 02/01/21 08:00 BP 110/72 02/01/21 08:00 Pulse Ox 94 L 02/01/21 09:56 Intake & Output 01/31/21 02/01/21 02/01/21 18:59 06:59 18:59 Intake Total 550 200 Balance 550 200 Intake: Oral 550 200 Other: Voiding Method Toilet Toilet Toilet # Voids 2 # Bowel Movements 2 - Exam GENERAL EXAM: Alert, pleasant 50-year-old female patient, on 2 L comfortable in no apparent distress. HEAD: Normocephalic. EYES: Normal reaction of pupils, equal size. NOSE: Clear with pink turbinates. THROAT: No erythema or exudates. NECK: No masses, no JVD. CHEST: No chest wall deformity. LUNGS: Equal air entry with coarse crackles in the posterior bases. CVS: S1 and S2 normal with no audible murmur, regular rhythm. ABDOMEN: No hepatosplenomegaly, normal bowel sounds, no guarding or rigidity. SPINE: No scoliosis or deformity SKIN: No rashes CENTRAL NERVOUS SYSTEM: No focal deficits, tone is normal in all 4 extremities. EXTREMITIES: There is no peripheral edema. No clubbing, no cyanosis. Perip heral pulses are intact. - Labs CBC & Chem 7: 01/29/21 20:01 01/30/21 10:52 Labs: Abnormal Lab Results - Last 24 Hours (Table) 02/01/21 Range/Units 06:45 Lactate Dehydrogenase 366 H (120-246) U/L C-Reactive Protein 6.0 H (0.0-0.8) mg/dL Assessment and Plan Assessment: 1 Acute hypoxemic respiratory failure secondary to CoVID 19 pneumonia/pneumonitis. Receiving Remdesivir 2 History of fibromyalgia. 3 Gastroesophageal reflux disease Plan: The patient was seen and evaluated by Dr. Guthrie Chest x-ray and labs reviewed Day #3 of Remdesivir Continue Lovenox, Decadron, colchicine, multivitamins Increase her activity as tolerated Titrate down the FiO2 as tolerated We'll continue to follow I, the cosigning physician, performed a history & physical examination of the patient. Lungs sounds with coarse crackles in bilateral posterior bases. M aintaining good O2 saturations in the 90s on 2 L/m per nasal cannula. I discussed the assessment and plan of care with my nurse practitioner, Pamela Sanchez. I attest to the above note as dictated by her.
--- NOTE | 2021-02-01 13:57 | P.PN ---
Subjective This is a pleasant 50 years old female with past medical history of fibromyalgia, GERD and anxiety and depression Patient presents because of dyspnea. Patient states last Friday about one week ago she started having fever and coughing and soon thereafter followed by body aches and dyspnea, last Friday she felt so weak she was unable to walk. She went to urgent care at [place] where they diagnosed her with pneumonia Patient was diagnosed with bilateral pneumonia at urgent care, where she was started on steroids however patient got diaphoretic and passed out in the waiting room where they help her to sit down, then she passed out for second time in the car and third time of passing out was in the hospital. Usually she feels some abdominal pain and chest pain immediately before she passes out, however she recovers in 1-2 minutes with no confusion, no seizure- like activity, no tongue biting or urinary or bowel incontinence to suspect seizure. He wakes up right away thereafter Patient also has dry cough, vomited once but no diarrhea, She complains from back pain but no leg weakness or numbness. She denies smoking, alcohol or illicit drugs Vitals are stable and patient is afebrile. Her oxygen saturation is 92-94% on 2 L oxygen via nasal cannula Labs show an unremarkable CBC, INR. D-dimer negative at 0.36. ABG showing pH slightly elevated at 7.5, pCO2 is low as 23 and pO2 is elevated at 1:15. Sodium is 132. Rest of BMP is unremarkable, liver enzymes not elevated, C-reactive protein is high at 159. And redness calcium was low at 4.4 Cro[place] not dictated EKG showing normal sinus rhythm at [address]pm with no significant ST-T changes. Chest x-ray: Patchy bilateral lower lobe pneumonia 01/31/2021 Patient breathing easier today, her dyspnea is improving but not completely resolved. No more dizziness or syncope episode. She still complaining of from back pain but actually she points to the left lower chest from behind with tender area. We added Jackson 5 and lidocaine patch She has low-grade temperature today 100.6, oxygen saturation is at 2 L, no labs from today. She is currently on remdesivir and dexamethasone, vitamin C, D and zinc. Echocardiogram showed ejection fraction of 60-65% TSH, B12 and folate are unremarkable Repeat chest x-ray and inflammatory markers tomorrow 02/01/2021 Patient is with bilateral covid With pneumonia. Also she had syncope up on admission. Her oxygen saturation is a stable, currently 94% on 2 L oxygen via nasal cannula. heart rate 49-60 while she is resting in bed D-dimer is normal at 0.4, LDH is trending down 714 down to 366 and C-reactive protein 149 down to 6.0. Chest x-ray: Bilateral pneumonia Echocardiogram showed ejection fraction of 60-65% with borderline LVH. Pulmonary on the case She remains on dexamethasone, vitamin C, vitamin D, zinc, she has 2 more doses of remdesivir Check the limits with the staff: No concerning issue Review of Systems CONSTITUTIONAL: No fever, no malaise, no fatigue. HEENT: No recent visual problems or hearing problems. Denied any sore throat. CARDIOVASCULAR: No orthopnea, PND, no palpitations, no syncope. PULMONARY: No chest wall tenderness, no hemoptysis. GASTROINTESTINAL: No diarrhea, no nausea, no abdominal pain. Normoactive bowel sounds. NEUROLOGICAL: No headaches, no weakness, no numbness. Active Medications Generic Name Dose Route Start Last Admin Trade Name Freq PRN Reason Stop Dose Admin Acetaminophen 650 mg 01/29/21 22:26 02/01/21 09:42 Acetaminophen Tab 325 Mg Tab PO 650 mg Q6HR PRN Administration Mild Pain or Fever > 100.5 Hydrocodone Bitart/Acetaminophen 1 each 01/31/21 15:36 01/31/21 20:30 Hydrocodone/Apap 5-325mg 1 Each Tab PO 1 each Q6HR PRN Administration Pain Ascorbic Acid 500 mg 01/29/21 23:00 02/01/21 08:07 Ascorbic Acid 500 Mg Tab PO 500 mg DAILY MARLENE Administration Cholecalciferol 10 mcg 01/29/21 23:00 02/01/21 08:07 Cholecalciferol 10 Mcg (400 Iu) Tablet PO 10 mcg DAILY MARLENE Administration Colchicine 0.6 mg 02/02/21 09:00 Colchicine 0.6 Mg Each PO DAILY MARLENE Dexamethasone Sodium Phosphate 6 mg 01/29/21 23:00 02/01/21 08:07 Dexamethasone Sod Phosphate 10 Mg/Ml 1 Ml Vial IV 6 mg DAILY MARLENE Administration Enoxaparin Sodium 40 mg 01/30/21 09:00 02/01/21 08:06 Enoxaparin 40 Mg/0.4 Ml Syringe SQ 40 mg DAILY MARLENE Administration Famotidine 40 mg 01/30/21 09:00 02/01/21 08:07 Famotidine 20 Mg Tab PO 40 mg DAILY MARLENE Administration Sodium Chloride 1,000 mls @ 20 mls/hr 01/29/21 22:30 01/31/21 21:47 Saline 0.9% IV 20 mls/hr .Q24H MARLENE Administration Remdesivir 100 mg/ Sodium 250 mls @ 250 mls/hr 01/31/21 11:00 02/01/21 12:04 Chloride IVPB 02/03/21 11:59 250 mls/hr DAILY@1100 MARLENE Administration Lidocaine 1 patch 01/31/21 15:45 02/01/21 08:06 Lidocaine 5% Patch TOPICAL 1 patch DAILY MARLENE Administration Naloxone HCl 0.2 mg 01/29/21 22:26 Naloxone 0.4 Mg/Ml 1 Ml Vial IV Q2M PRN Opioid Reversal Ondansetron HCl 4 mg 01/29/21 22:26 01/31/21 01:39 Ondansetron 4 Mg/2 Ml Vial IVP 4 mg Q8HR PRN Administration Nausea And Vomiting Pantoprazole Sodium 40 mg 01/30/21 09:00 02/01/21 08:08 Pantoprazole 40 Mg/10 Ml Vial IV Not Given DAILY MARLENE Zinc Sulfate 220 mg 01/29/21 23:00 02/01/21 08:07 Zinc Sulfate 220 Mg Cap PO 220 mg DAILY MARLENE Administration Objective - Vital Signs Vital signs: Vital Signs Temp 97.5 F L 02/01/21 08:00 Pulse 49 L 02/01/21 08:00 Resp 20 02/01/21 08:00 BP 110/72 02/01/21 08:00 Pulse Ox 94 L 02/01/21 09:56 Intake & Output 01/31/21 02/01/21 02/01/21 18:59 06:59 18:59 Intake Total 550 200 Balance 550 200 Intake: Oral 550 200 Other: Voiding Method Toilet Toilet Toilet # Voids 2 # Bowel Movements 2 - Exam GENERAL: The patient is alert and oriented x3, not in any acute distress. Well developed, well nourished. HEENT: Pupils are round and equally reacting to light. EOMI. No scleral icterus. No conjunctival pallor. Normocephalic, atraumatic. No pharyngeal erythema. No thyromegaly. CARDIOVASCULAR: S1 and S2 present. No murmurs, rubs, or gallops. PULMONARY: Chest is clear to auscultation, no wheezing or crackles. ABDOMEN: Soft, nontender, nondistended, normoactive bowel sounds. No palpable organomegaly. MUSCULOSKELETAL: No joint swelling or deformity. EXTREMITIES: No cyanosis, clubbing, or pedal edema. NEUROLOGICAL: Gross neurological examination did not reveal any focal deficits. SKIN: No rashes. No petechiae - Labs CBC & Chem 7: 01/29/21 20:01 01/30/21 10:52 Labs: Abnormal Lab Results - Last 24 Hours (Table) 02/01/21 Range/Units 06:45 Lactate Dehydrogenase 366 H (120-246) U/L C-Reactive Protein 6.0 H (0.0-0.8) mg/dL Assessment and Plan Assessment: Acute, bilateral covid pneumonia Acute proximal it Respiratory failure. increased inflammatory markers Recurrent syncope 3 upon admission, suspect vasovagal or orthostatic versus secondary to Covid. No more syncope or dizziness Right lower chest pain posteriorly, with no leg weakness or numbness . GERD History of fibromyalgia History of anxiety and depression, no connective tissue Plan: This is a pleasant 50 years old female who presents with cough and pneumonia and syncope. Continue with vitamin C, zinc, steroids and redmesivir per pulmonary consult recommendations We going to check orthostatic vitals [discussed with staff] and continue with telemetry Discontinue IV fluids Labs and medication were reviewed.. Continue same treatment. Continue with symptomatic treatment. Resume home medication. Monitor lytes and vitals. DVT and GI prophylaxis. Further recommendationsas per clinical course of the patient DVT prophylaxis: Subcutaneous Lovenox GI Prophylaxis: Pepcid Prognosis is guarded
[2021-02-01] MEDS: SODIUM CHLORIDE 0.9% 1,000 ML IV SCH (23:14)
[2021-02-02] MEDS: ENOXAPARIN 40 MG/0.4 ML SYRINGE SQ SCH (08:30)
[2021-02-02] MEDS: CHOLECALCIFEROL 10 MCG (400 IU) TABLET PO SCH (08:31)
[2021-02-02] MEDS: COLCHICINE 0.6 MG EACH PO SCH (08:31)
[2021-02-02] MEDS: FAMOTIDINE 20 MG TAB PO SCH (08:31)
[2021-02-02] MEDS: PANTOPRAZOLE 40 MG/10 ML VIAL IV SCH (08:31)
[2021-02-02] MEDS: ZINC SULFATE 220 MG CAP PO SCH (08:31)
[2021-02-02] MEDS: ASCORBIC ACID 500 MG TAB PO SCH (08:31)
[2021-02-02] MEDS: DEXAMETHASONE SOD PHOSPHATE 10 MG/ML 1 ML VIAL IV SCH (08:31)
[2021-02-02] MEDS: LIDOCAINE 5% PATCH TOPICAL SCH (08:32)
[2021-02-02] MEDS: REMDESIVIR 100 MG in SODIUM CHLORIDE 0.9% 250 ML IVPB SCH (10:41)
[2021-02-02 12:41] LABS: C Reactive Protein 3.5 mg/dL (0.0-0.8)
--- NOTE | 2021-02-02 13:45 | P.PN ---
Subjective Progress Note Date: 02/02/21 Principal diagnosis: CoVID 19 pneumonitis 50-year-old female, who comes to the emergency room, with complaints of shortness of breath. The patient's been sick for about a week. In addition, the patient has muscle aches, joint aches, weakness, fatigue, and cough. When she coughs, the cough is painful. Currently, she is on 2 L nasal cannula. Her primary care from his physician is Dr. Garrido. Other than fibromyalgia, she really doesn't have much in the way of medical problems. She's not receiving any IV fluids. She does complain of fever and chills as well. No nausea, vomiting, or diarrhea. White count of 7.1, hemoglobin 13, hematocrit 37.5, and platelet count 154,000. PT INR and PTT are normal. D-dimer 0.36. Blood gases show a PaO2 of 1:15, PaCO2 of 23, pH is 7.53. This is consistent with a respiratory alkalosis. This was on 32% oxygen. Sodium 132, potassium 4.1, chlorides 103, CO2 18, with an anion gap of 12, BUN 12, and creatinine 0.74. Chest x-ray shows bilateral patchy lower lobe pneumonia. The patient is seen today 01/31/2021 in follow-up on the regular medical floor. He is currently sitting up in bed. Awake and alert in no acute distress. Currently on 3 L/m per nasal cannula maintaining O2 saturations in the 90s. This is day #2 of Remdesivir. She is also on Decadron, Lovenox, multivitamins, colchicine. Sodium 139. Potassium 4.1. Creatinine 0.54. LDH 714. C-reactive protein 149. Echocardiogram revealed preserved left ventricular systolic function with ejection fraction 60-65%. The patient is seen today 02/01/2021 in follow-up on the regular medical floor. She is currently resting comfortably in bed. Awake and alert in no acute distress. She is still requiring 2 L to maintain O2 saturations in the 90s. Chest x-ray continues to show bilateral patchy infiltrates. This is day #3 of her Remdesivir. She remains on Decadron, Lovenox, vitamin supplements. D-dimer 0.42. LDH 366. C-reactive protein 6.0. She is feeling stronger today, less short of breath. The patient is seen today 02/02/2021 in follow-up on the regular medical floor. This is day #4 of her Remdesivir. She is currently on 3 L nasal cannula to maintain O2 saturations in the 90s. She is still quite fatigued. Continues with a dry nonproductive cough. Dyspnea on exertion. D-dimer 0.38. LDH 353. C-reactive protein 3.5. She remains on Lovenox, Decadron, vitamin supplements. She is also on colchicine. Objective - Vital Signs Vital signs: Vital Signs Temp 98.1 F 02/02/21 08:00 Pulse 58 L 02/02/21 08:00 Resp 19 02/02/21 08:00 BP 117/75 02/02/21 08:00 Pulse Ox 96 02/02/21 08:00 Intake & Output 02/01/21 02/02/21 02/02/21 18:59 06:59 18:59 Intake Total 700 240 Balance 700 240 Intake: Oral 700 240 Other: Voiding Method Toilet Toilet Toilet # Voids 4 2 - Exam GENERAL EXAM: Alert, pleasant 50-year-old female patient, on 3 L comfortable in no apparent distress. HEAD: Normocephalic. EYES: Normal reaction of pupils, equal size. NOSE: Clear with pink turbinates. THROAT: No erythema or exudates. NECK: No masses, no JVD. CHEST: No chest wall deformity. LUNGS: Equal air entry with coarse crackles in the posterior bases. CVS: S1 and S2 normal with no audible murmur, regular rhythm. ABDOMEN: No hepatosplenomegaly, normal bowel sounds, no guarding or rigidity. SPINE: No scoliosis or deformity SKIN: No rashes CENTRAL NERVOUS SYSTEM: No focal deficits, tone is normal in all 4 extremities. EXTREMITIES: There is no peripheral edema. No clubbing, no cyanosis. Periphera l pulses are intact. - Labs CBC & Chem 7: 01/29/21 20:01 01/30/21 10:52 Labs: Abnormal Lab Results - Last 24 Hours (Table) 02/02/21 Range/Units 05:52 Lactate Dehydrogenase 353 H (120-246) U/L C-Reactive Protein 3.5 H (0.0-0.8) mg/dL Assessment and Plan Assessment: 1 Acute hypoxemic respiratory failure secondary to CoVID 19 pneumonia/pneumonitis. Receiving Remdesivir 2 History of fibromyalgia. 3 Gastroesophageal reflux disease Plan: The patient was seen and evaluated by Dr. Guthrie Chest x-ray and labs reviewed Day #4 of Remdesivir Continue Lovenox, Decadron, colchicine, multivitamins Titrate down the FiO2 as tolerated We'll continue to follow I, the cosigning physician, performed a history & physical examination of the patient. Lungs sounds with coarse crackles in bilateral posterior bases. Maintaining good O2 saturations in the 90s on 3 L/m per nasal cannula. I discussed the assessment and plan of care with my nurse practitioner, Pamela Sanchez. I attest to the above note as dictated by her.
[2021-02-02] MEDS ORDERED: SODIUM CHLORIDE 0.65% NASAL SPRAY 44 ML BTL NASAL PRN (16:57)
[2021-02-02] MEDS: SODIUM CHLORIDE 0.9% 1,000 ML IV SCH (22:44)
--- NOTE | 2021-02-03 06:59 | XR ---
EXAMINATION TYPE: XR chest 1V portable DATE OF EXAM: 02/03/2021 COMPARISON: 02/01/2021 HISTORY: Covid pneumonia TECHNIQUE: Single frontal view of the chest is obtained. FINDINGS: There is moderate interstitial opacity and scattered small air space opacities in the mid and lower lung zones mildly improved since the prior study. There is no large pleural effusion or pneumothorax. Heart size normal. The osseous structures are int act. Impression: mild decreased opacification of the lung parenchyma compared to prior study
--- NOTE | 2021-02-03 09:09 | P.PN ---
Subjective Progress Note Date: 02/02/21 50 years old female with past medical history of fibromyalgia, GERD and anxiety and depression Patient presents because of dyspnea. Patient states last Friday about one week ago she started having fever and coughing and soon thereafter followed by body aches and dyspnea, last Friday she felt so weak she was unable to walk. She went to urgent care at [place] where they diagnosed her with pneumonia Patient was diagnosed with bilateral pneumonia at urgent care, where she was started on steroids however patient got diaphoretic and passed out in the waiting room where they help her to sit down, then she passed out for second time in the car and third time of passing out was in the hospital. Usually she feels some abdominal pain and chest pain immediately before she passes out, however she recovers in 1-2 minutes with no confusion, no seizure- like activity, no tongue biting or urinary or bowel incontinence to suspect seizure. 02/02/2021 Patient is seen and evaluated in follow-up on the regular medical floor. This is day #4 of her Remdesivir. She is currently on 3 L nasal cannula to maintain O2 saturations in the 90s. She is still quite fatigued. Continues with a dry nonproductive cough. Dyspnea on exertion. D-dimer 0.38. LDH 353. C-reactive protein 3.5. She remains on Lovenox, Decadron, vitamin supplements. She is also on colchicine. Day #4 of Remdesivir; Continue Lovenox, Decadron, colchicine, multivitamins Titrate down the FiO2 as tolerated Review of Systems CONSTITUTIONAL: No fever, no malaise, no fatigue. HEENT: No recent visual problems or hearing problems. Denied any sore throat. CARDIOVASCULAR: No orthopnea, PND, no palpitations, no syncope. PULMONARY: No chest wall tenderness, no hemoptysis. GASTROINTESTINAL: No diarrhea, no nausea, no abdominal pain. Normoactive bowel sounds. NEUROLOGICAL: No headaches, no weakness, no numbness. Objective - Vital Signs Vital signs: Vital Signs Temp 98.1 F 02/02/21 08:00 Pulse 58 L 02/02/21 08:00 Resp 19 02/02/21 08:00 BP 117/75 02/02/21 08:00 Pulse Ox 96 02/02/21 08:00 Intake & Output 02/01/21 02/02/21 02/02/21 18:59 06:59 18:59 Intake Total 700 240 Balance 700 240 Intake: Oral 700 240 Other: Voiding Method Toilet Toilet Toilet # Voids 4 2 - Exam GENERAL: The patient is alert and oriented x3, not in any acute distress. Well developed, well nourished. HEENT: Pupils are round and equally reacting to light. EOMI. No scleral icterus. No conjunctival pallor. Normocephalic, atraumatic. No pharyngeal erythema. No thyromegaly. CARDIOVASCULAR: S1 and S2 present. No murmurs, rubs, or gallops. PULMONARY: Chest is clear to auscultation, no wheezing or crackles. ABDOMEN: Soft, nontender, nondistended, normoactive bowel sounds. No palpable organomegaly. MUSCULOSKELETAL: No joint swelling or deformity. EXTREMITIES: No cyanosis, clubbing, or pedal edema. NEUROLOGICAL: Gross neurological examination did not reveal any focal deficits. SKIN: No rashes. No petechiae - Labs CBC & Chem 7: 01/29/21 20:01 01/30/21 10:52 Labs: Abnormal Lab Results - Last 24 Hours (Table) 02/01/21 Range/Units 06:45 Lactate Dehydrogenase 366 H (120-246) U/L C-Reactive Protein 6.0 H (0.0-0.8) mg/dL Assessment and Plan Assessment: Acute, bilateral covid pneumonia Acute proximal it Respiratory failure. increased inflammatory markers Recurrent syncope 3 upon admission, suspect vasovagal or orthostatic versus secondary to Covid. No more syncope or dizziness Right lower chest pain posteriorly, with no leg weakness or numbness . 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 Continue with vitamin C, zinc, steroids and redmesivir per pulmonary consult recommendations We going to check orthostatic vitals [discussed with staff] and continue with telemetry Discontinue IV fluids Labs and medication were reviewed.. Continue same treatment. Continue with symptomatic treatment. Resume home medication. Monitor lytes and vitals. DVT and GI prophylaxis. Further recommendationsas per clinical course of the patient DVT prophylaxis: Subcutaneous Lovenox GI Prophylaxis: Pepcid Prognosis is guarded
--- NOTE | 2021-02-03 09:42 | P.PN ---
Subjective Progress Note Date: 02/03/21 Principal diagnosis: Shortness of breath. 50-year-old female, who comes to the emergency room, with complaints of shortness of breath. The patient's been sick for about a week. In addition, the patient has muscle aches, joint aches, weakness, fatigue, and cough. When she coughs, the cough is painful. Currently, she is on 2 L nasal cannula. Her primary care from his physician is Dr. Garrido. Other than fibromyalgia, she really doesn't have much in the way of medical problems. She's not receiving any IV fluids. She does complain of fever and chills as well. No nausea, vomiting, or diarrhea. White count of 7.1, hemoglobin 13, hematocrit 37.5, and platelet count 154,000. PT INR and PTT are normal. D-dimer 0.36. Blood gases show a PaO2 of 1:15, PaCO2 of 23, pH is 7.53. This is consistent with a respiratory alkalosis. This was on 32% oxygen. Sodium 132, potassium 4.1, chlorides 103, CO2 18, with an anion gap of 12, BUN 12, and creatinine 0.74. Chest x-ray shows bilateral patchy lower lobe pneumonia. The patient is seen today 01/31/2021 in follow-up on the regular medical floor. He is currently sitting up in bed. Awake and alert in no acute distress. Currently on 3 L/m per nasal cannula maintaining O2 saturations in the 90s. This is day #2 of Remdesivir. She is also on Decadron, Lovenox, multivitamins, colchicine. Sodium 139. Potassium 4.1. Creatinine 0.54. LDH 714. C-reactive protein 149. Echocardiogram revealed preserved left ventricular systolic function with ejection fraction 60-65%. The patient is seen today 02/01/2021 in follow-up on the regular medical floor. She is currently resting comfortably in bed. Awake and alert in no acute distress. She is still requiring 2 L to maintain O2 saturations in the 90s. Chest x-ray continues to show bilateral patchy infiltrates. This is day #3 of her Remdesivir. She remains on Decadron, Lovenox, vitamin supplements. D-dimer 0.42. LDH 366. C-reactive protein 6.0. She is feeling stronger today, less short of breath. The patient is seen today 02/02/2021 in follow-up on the regular medical floor. This is day #4 of her Remdesivir. She is currently on 3 L nasal cannula to maintain O2 saturations in the 90s. She is still quite fatigued. Continues with a dry nonproductive cough. Dyspnea on exertion. D-dimer 0.38. LDH 353. C-reactive protein 3.5. She remains on Lovenox, Decadron, vitamin supplements. She is also on colchicine. Progress note dated 02/03/2021. 50-year-old female, with a history of fibromyalgia, and acute hypoxemic respiratory failure secondary to COVID 19 pneumonia/pneumonitis. The patient is currently receiving day 5 of REM. She is on 3 L nasal cannula. A chest x-ray was ordered for today. She is feeling a bit better. I did tell her to make sure that while in bed, she has right side down, left side down, supine, and prone positioning. In addition, she should get out of bed and sit up in the chair to help diaphragm function. No labs today. Chest x-ray today does show some improvement when compared to the chest x-ray done on February 01. Objective - Vital Signs Vital signs: Vital Signs Temp 98.3 F 02/03/21 00:28 Pulse 62 02/03/21 00:28 Resp 18 02/03/21 00:28 BP 125/83 02/03/21 00:28 Pulse Ox 89 L 02/03/21 00:28 Intake & Output 02/02/21 02/03/21 02/03/21 18:59 06:59 18:59 Intake Total 540 Balance 540 Intake: Oral 540 Other: Voiding Method Toilet Toilet # Voids 4 2 - Exam No acute distress, oriented 3. No respiratory difficulty. No use of accessory muscles or conversational dyspnea. HEENT examination is grossly unremarkable. Mucous membranes are moist. No oral lesions. Neck supple. Full range of motion. No adenopathy thyromegaly or neck vein distention. Cardiovascular examination reveals regular rhythm rate. S1-S2 normal. No S3 or S4. No discernible murmur noted. Heart rate 62 bpm. Lungs reveal diminished bilateral breath sounds. Saturations 89% on 3 L. Bibasilar crackles and rhonchi are noted.. Abdomen soft bowel sounds are heard. No masses or tenderness. Extremities are intact. No cyanosis clubbing or edema. Skin is without rash or lesion. Neurologic examination is brief but nonfocal. - Labs CBC & Chem 7: 01/29/21 20:01 01/30/21 10:52 Labs: Abnormal Lab Results - Last 24 Hours (Table) 02/02/21 Range/Units 05:52 Lactate Dehydrogenase 353 H (120-246) U/L C-Reactive Protein 3.5 H (0.0-0.8) mg/dL Assessment and Plan Assessment: Acute COVID 19 pneumonitis/pneumonia. History of fibromyalgia. Moderate hypoxemia secondary to COVID 19 pneumonia. History of gastroesophageal reflux disease. Plan: Plan dated 02/03/2021. Currently, the patient's on 3 L nasal cannula saturations are hovering right around 90%. The patient is not manifesting any signs or symptoms of respiratory distress. No conversational dyspnea, or use of accessory muscles. I did tell her that she needs to get out of bed and sit up in a chair. While in the bed, she needs to have her right side down, left side down, laying supine, and also laying in the prone position. She is on day 5 of REM. She's on usual medications including vitamins, Lovenox, and Decadron. Additional recommendations and suggestions are forthcoming. Time with Patient: Less than 30
[2021-02-03] MEDS: FAMOTIDINE 20 MG TAB PO SCH (09:49)
[2021-02-03] MEDS: ASCORBIC ACID 500 MG TAB PO SCH (09:49)
[2021-02-03] MEDS: ZINC SULFATE 220 MG CAP PO SCH (09:49)
[2021-02-03] MEDS: CHOLECALCIFEROL 10 MCG (400 IU) TABLET PO SCH (09:49)
[2021-02-03] MEDS: ENOXAPARIN 40 MG/0.4 ML SYRINGE SQ SCH (09:49)
[2021-02-03] MEDS: COLCHICINE 0.6 MG EACH PO SCH (09:49)
[2021-02-03] MEDS: LIDOCAINE 5% PATCH TOPICAL SCH (09:50)
[2021-02-03] MEDS: DEXAMETHASONE SOD PHOSPHATE 10 MG/ML 1 ML VIAL IV SCH (09:50)
[2021-02-03] MEDS: PANTOPRAZOLE 40 MG/10 ML VIAL IV SCH (09:50)
[2021-02-03] MEDS: REMDESIVIR 100 MG in SODIUM CHLORIDE 0.9% 250 ML IVPB SCH (09:51)
[2021-02-03 10:16] LABS: C Reactive Protein 2.1 mg/dL (0.0-0.8)
[2021-02-03] MEDS: SODIUM CHLORIDE 0.9% 1,000 ML IV SCH (20:54)
[2021-02-04] MEDS: ENOXAPARIN 40 MG/0.4 ML SYRINGE SQ SCH (09:53)
[2021-02-04] MEDS: FAMOTIDINE 20 MG TAB PO SCH (09:53)
[2021-02-04] MEDS: DEXAMETHASONE SOD PHOSPHATE 10 MG/ML 1 ML VIAL IV SCH (09:53)
[2021-02-04] MEDS: LIDOCAINE 5% PATCH TOPICAL SCH (09:53)
[2021-02-04] MEDS: PANTOPRAZOLE 40 MG/10 ML VIAL IV SCH (09:53)
[2021-02-04] MEDS: ZINC SULFATE 220 MG CAP PO SCH (09:54)
[2021-02-04] MEDS: ASCORBIC ACID 500 MG TAB PO SCH (09:54)
[2021-02-04] MEDS: CHOLECALCIFEROL 10 MCG (400 IU) TABLET PO SCH (09:54)
[2021-02-04] MEDS: COLCHICINE 0.6 MG EACH PO SCH (09:54)
[2021-02-04 12:16] VITALS: RESP 16
--- NOTE | 2021-02-04 13:16 | P.PN ---
Subjective Progress Note Date: 02/04/21 Principal diagnosis: Shortness of breath. 50-year-old female, who comes to the emergency room, with complaints of shortness of breath. The patient's been sick for about a week. In addition, the patient has muscle aches, joint aches, weakness, fatigue, and cough. When she coughs, the cough is painful. Currently, she is on 2 L nasal cannula. Her primary care from his physician is Dr. Garrido. Other than fibromyalgia, she really doesn't have much in the way of medical problems. She's not receiving any IV fluids. She does complain of fever and chills as well. No nausea, vomiting, or diarrhea. White count of 7.1, hemoglobin 13, hematocrit 37.5, and platelet count 154,000. PT INR and PTT are normal. D-dimer 0.36. Blood gases show a PaO2 of 1:15, PaCO2 of 23, pH is 7.53. This is consistent with a respiratory alkalosis. This was on 32% oxygen. Sodium 132, potassium 4.1, chlorides 103, CO2 18, with an anion gap of 12, BUN 12, and creatinine 0.74. Chest x-ray shows bilateral patchy lower lobe pneumonia. The patient is seen today 01/31/2021 in follow-up on the regular medical floor. He is currently sitting up in bed. Awake and alert in no acute distress. Currently on 3 L/m per nasal cannula maintaining O2 saturations in the 90s. This is day #2 of Remdesivir. She is also on Decadron, Lovenox, multivitamins, colchicine. Sodium 139. Potassium 4.1. Creatinine 0.54. LDH 714. C-reactive protein 149. Echocardiogram revealed preserved left ventricular systolic function with ejection fraction 60-65%. The patient is seen today 02/01/2021 in follow-up on the regular medical floor. She is currently resting comfortably in bed. Awake and alert in no acute distress. She is still requiring 2 L to maintain O2 saturations in the 90s. Chest x-ray continues to show bilateral patchy infiltrates. This is day #3 of her Remdesivir. She remains on Decadron, Lovenox, vitamin supplements. D-dimer 0.42. LDH 366. C-reactive protein 6.0. She is feeling stronger today, less short of breath. The patient is seen today 02/02/2021 in follow-up on the regular medical floor. This is day #4 of her Remdesivir. She is currently on 3 L nasal cannula to maintain O2 saturations in the 90s. She is still quite fatigued. Continues with a dry nonproductive cough. Dyspnea on exertion. D-dimer 0.38. LDH 353. C-reactive protein 3.5. She remains on Lovenox, Decadron, vitamin supplements. She is also on colchicine. Progress note dated 02/03/2021. 50-year-old female, with a history of fibromyalgia, and acute hypoxemic respiratory failure secondary to COVID 19 pneumonia/pneumonitis. The patient is currently receiving day 5 of REM. She is on 3 L nasal cannula. A chest x-ray was ordered for today. She is feeling a bit better. I did tell her to make sure that while in bed, she has right side down, left side down, supine, and prone positioning. In addition, she should get out of bed and sit up in the chair to help diaphragm function. No labs today. Chest x-ray today does show some improvement when compared to the chest x-ray done on February 01. Progress note dated 02/04/2021. Currently, the patient is doing better. She is been weaned off oxygen. She's completed her REM. The patient could be considered for possible discharge. I'll leave that up to the primary service. Yesterday, she was on 3 L. She was feeling a bit better yesterday as well. I did tell her to move about in bed yesterday. No new lab data today. Chest x-ray from yesterday did reveal improvement in her bilateral infiltrates. Again she's feeling much better. Objective - Vital Signs Vital signs: Vital Signs Temp 98.0 F 02/04/21 08:00 Pulse 78 02/04/21 08:00 Resp 16 02/04/21 08:00 BP 111/76 02/04/21 08:00 Pulse Ox 91 L 02/04/21 08:00 Intake & Output 02/03/21 02/04/21 02/04/21 18:59 06:59 18:59 Intake Total 240 Balance 240 Intake: Oral 240 Other: Voiding Method Toilet # Voids 3 2 - Exam No acute distress, oriented 3. No respiratory difficulty. No use of accessory muscles or conversational dyspnea. HEENT examination is grossly unremarkable. Mucous membranes are moist. No oral lesions. Neck supple. Full range of motion. No adenopathy thyromegaly or neck vein distention. Cardiovascular examination reveals regular rhythm rate. S1-S2 normal. No S3 or S4. No discernible murmur noted. Heart rate 78 bpm. Lungs reveal diminished bilateral breath sounds. Saturations 91% on room air. Bibasilar crackles and rhonchi are noted.. Abdomen soft bowel sounds are heard. No masses or tenderness. Extremities are intact. No cyanosis clubbing or edema. Skin is without rash or lesion. Neurologic examination is brief but nonfocal. - Labs CBC & Chem 7: 01/29/21 20:01 01/30/21 10:52 Assessment and Plan Assessment: Acute COVID 19 pneumonitis/pneumonia. History of fibromyalgia. Moderate hypoxemia secondary to COVID 19 pneumonia. History of gastroesophageal reflux disease. Plan: Plan dated 02/03/2021. Currently, the patient's on 3 L nasal cannula saturations are hovering right around 90%. The patient is not manifesting any signs or symptoms of respiratory distress. No conversational dyspnea, or use of accessory muscles. I did tell her that she needs to get out of bed and sit up in a chair. While in the bed, she needs to have her right side down, left side down, laying supine, and also laying in the prone position. She is on day 5 of REM. She's on usual medications including vitamins, Lovenox, and Decadron. Additional recommendations and suggestions are forthcoming. Plan dated 02/04/2021. The patient seemed be doing much better. She's been weaned off of oxygen. She states that when she walks up and down the hallway, without oxygen, her saturations remained above 90%. The patient could be considered for possible discharge. She has completed her REM. Time with Patient: Less than 30
--- NOTE | 2021-02-04 18:31 | P.PN ---
Subjective Progress Note Date: 02/03/21 50 years old female with past medical history of fibromyalgia, GERD and anxiety and depression Patient presents because of dyspnea. Patient states last Friday about one week ago she started having fever and coughing and soon thereafter followed by body aches and dyspnea, last Friday she felt so weak she was unable to walk. She went to urgent care at [place] where they diagnosed her with pneumonia Patient was diagnosed with bilateral pneumonia at urgent care, where she was started on steroids however patient got diaphoretic and passed out in the waiting room where they help her to sit down, then she passed out for second time in the car and third time of passing out was in the hospital. Usually she feels some abdominal pain and chest pain immediately before she passes out, however she recovers in 1-2 minutes with no confusion, no seizure- like activity, no tongue biting or urinary or bowel incontinence to suspect seizure. 02/02/2021 Patient is seen and evaluated in follow-up on the regular medical floor. This is day #4 of her Remdesivir. She is currently on 3 L nasal cannula to maintain O2 saturations in the 90s. She is still quite fatigued. Continues with a dry nonproductive cough. Dyspnea on exertion. D-dimer 0.38. LDH 353. C-reactive protein 3.5. She remains on Lovenox, Decadron, vitamin supplements. She is also on colchicine. Day #4 of Remdesivir; Continue Lovenox, Decadron, colchicine, multivitamins Titrate down the FiO2 as tolerated 02/03/2021 Patient is seen and evaluated in room at bedside; The patient is currently receiving day 5 of REM. She is on 3 L nasal cannula. A chest x-ray was ordered for today. She is feeling a bit better. I did tell her to make sure that while in bed, she has right side down, left side down, supine, and prone positioning. In addition, she should get out of bed and sit up in the chair to help diaphragm function. No labs today. Chest x-ray today does show some improvement when compared to the chest x-ray done on February 01. Review of Systems CONSTITUTIONAL: No fever, no malaise, no fatigue. HEENT: No recent visual problems or hearing problems. Denied any sore throat. CARDIOVASCULAR: No orthopnea, PND, no palpitations, no syncope. PULMONARY: No chest wall tenderness, no hemoptysis. GASTROINTESTINAL: No diarrhea, no nausea, no abdominal pain. Normoactive bowel sounds. NEUROLOGICAL: No headaches, no weakness, no numbness. Objective - Vital Signs Vital signs: Vital Signs Temp 98.0 F 02/03/21 08:00 Pulse 65 02/03/21 08:00 Resp 18 02/03/21 08:00 BP 110/62 02/03/21 08:00 Pulse Ox 90 L 02/03/21 08:00 Intake & Output 02/02/21 02/03/21 02/03/21 18:59 06:59 18:59 Intake Total 540 240 Balance 540 240 Intake: Oral 540 240 Other: Voiding Method Toilet Toilet # Voids 4 2 - Exam GENERAL: The patient is alert and oriented x3, not in any acute distress. Well developed, well nourished. HEENT: Pupils are round and equally reacting to light. EOMI. No scleral icterus. No conjunctival pallor. Normocephalic, atraumatic. No pharyngeal erythema. No thyromegaly. CARDIOVASCULAR: S1 and S2 present. No murmurs, rubs, or gallops. PULMONARY: Chest is clear to auscultation, no wheezing or crackles. ABDOMEN: Soft, nontender, nondistended, normoactive bowel sounds. No palpable organomegaly. MUSCULOSKELETAL: No joint swelling or deformity. EXTREMITIES: No cyanosis, clubbing, or pedal edema. NEUROLOGICAL: Gross neurological examination did not reveal any focal deficits. SKIN: No rashes. No petechiae - Labs CBC & Chem 7: 01/29/21 20:01 01/30/21 10:52 Labs: Abnormal Lab Results - Last 24 Hours (Table) 02/02/21 02/03/21 Range/Units 05:52 06:03 Lactate Dehydrogenase 353 H 331 H (120-246) U/L C-Reactive Protein 3.5 H 2.1 H (0.0-0.8) mg/dL Assessment and Plan Assessment: Acute, bilateral covid pneumonia Acute proximal it Respiratory failure. increased inflammatory markers Recurrent syncope 3 upon admission, suspect vasovagal or orthostatic versus secondary to Covid. No more syncope or dizziness Right lower chest pain posteriorly, with no leg weakness or numbness . 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 Continue with vitamin C, zinc, steroids and redmesivir per pulmonary consult recommendations We going to check orthostatic vitals [discussed with staff] and continue with telemetry Discontinue IV fluids Labs and medication were reviewed.. Continue same treatment. Continue with symptomatic treatment. Resume home medication. Monitor lytes and vitals. DVT and GI prophylaxis. Further recommendationsas per clinical course of the patient DVT prophylaxis: Subcutaneous Lovenox GI Prophylaxis: Pepcid Prognosis is guarded
--- NOTE | 2021-02-04 18:37 | P.PN ---
Subjective Progress Note Date: 02/04/21 Principal diagnosis: Acute COVID 19 pneumonitis/pneumonia 50 years old female with past medical history of fibromyalgia, GERD and anxiety and depression Patient presents because of dyspnea. Patient states last Friday about one week ago she started having fever and coughing and soon thereafter followed by body aches and dyspnea, last Friday she felt so weak she was unable to walk. She went to urgent care at [place] where they diagnosed her with pneumonia Patient was diagnosed with bilateral pneumonia at urgent care, where she was started on steroids however patient got diaphoretic and passed out in the waiting room where they help her to sit down, then she passed out for second time in the car and third time of passing out was in the hospital. Usually she feels some abdominal pain and chest pain immediately before she passes out, however she recovers in 1-2 minutes with no confusion, no seizure- like activity, no tongue biting or urinary or bowel incontinence to suspect seizure. 02/02/2021 Patient is seen and evaluated in follow-up on the regular medical floor. This is day #4 of her Remdesivir. She is currently on 3 L nasal cannula to maintain O2 saturations in the 90s. She is still quite fatigued. Continues with a dry nonproductive cough. Dyspnea on exertion. D-dimer 0.38. LDH 353. C-reactive protein 3.5. She remains on Lovenox, Decadron, vitamin supplements. She is also on colchicine. Day #4 of Remdesivir; Continue Lovenox, Decadron, colchicine, multivitamins Titrate down the FiO2 as tolerated 02/03/2021 Patient is seen and evaluated in room at bedside; The patient is currently receiving day 5 of REM. She is on 3 L nasal cannula. A chest x-ray was ordered for today. She is feeling a bit better. I did tell her to make sure that while in bed, she has right side down, left side down, supine, and prone positioning. In addition, she should get out of bed and sit up in the chair to help diaphragm function. No labs today. Chest x-ray today does show some improvement when compared to the chest x-ray done on February 01. 02/04/2021; Patient is seen and evaluated in room at bedside; reports marked improvement in breathing Vital signs are stable with a temperature of 98.0, pulse 78, respirations 16 and blood pressure 111/76; SpO2 of 91% Patient continues to desaturate with activity; has completed REM treatment; we will continue to encourage patient to increase activity; possible discharge in next 24 hours if remains stable and once cleared by pulmonary service Review of Systems CONSTITUTIONAL: No fever, no malaise, no fatigue. HEENT: No recent visual problems or hearing problems. Denied any sore throat. CARDIOVASCULAR: No orthopnea, PND, no palpitations, no syncope. PULMONARY: No chest wall tenderness, no hemoptysis. GASTROINTESTINAL: No diarrhea, no nausea, no abdominal pain. Normoactive bowel sounds. NEUROLOGICAL: No headaches, no weakness, no numbness. Objective - Vital Signs Vital signs: Vital Signs Temp 98.0 F 02/04/21 08:00 Pulse 78 02/04/21 08:00 Resp 14 02/04/21 01:05 BP 111/76 02/04/21 08:00 Pulse Ox 91 L 02/04/21 08:00 Intake & Output 02/03/21 02/04/21 02/04/21 18:59 06:59 18:59 Intake Total 240 Balance 240 Intake: Oral 240 Other: Voiding Method Toilet # Voids 3 2 - Exam GENERAL: The patient is alert and oriented x3, not in any acute distress. Well developed, well nourished. HEENT: Pupils are round and equally reacting to light. EOMI. No scleral icterus. No conjunctival pallor. Normocephalic, atraumatic. No pharyngeal erythema. No thyromegaly. CARDIOVASCULAR: S1 and S2 present. No murmurs, rubs, or gallops. PULMONARY: Chest is clear to auscultation, no wheezing or crackles. ABDOMEN: Soft, nontender, nondistended, normoactive bowel sounds. No palpable organomegaly. MUSCULOSKELETAL: No joint swelling or deformity. EXTREMITIES: No cyanosis, clubbing, or pedal edema. NEUROLOGICAL: Gross neurological examination did not reveal any focal deficits. SKIN: No rashes. No petechiae - Labs CBC & Chem 7: 01/29/21 20:01 01/30/21 10:52 Assessment and Plan Assessment: Acute, bilateral covid pneumonia Acute proximal it Respiratory failure. increased inflammatory markers Recurrent syncope 3 upon admission, suspect vasovagal or orthostatic versus secondary to Covid. No more syncope or dizziness Right lower chest pain posteriorly, with no leg weakness or numbness . 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 Continue with vitamin C, zinc, steroids and redmesivir per pulmonary consult recommendations We going to check orthostatic vitals [discussed with staff] and continue with telemetry Discontinue IV fluids Labs and medication were reviewed.. Continue same treatment. Continue with symptomatic treatment. Resume home medication. Monitor lytes and vitals. DVT and GI prophylaxis. Further recommendationsas per clinical course of the patient DVT prophylaxis: Subcutaneous Lovenox GI Prophylaxis: Pepcid Prognosis is guarded
[2021-02-04] MEDS: SODIUM CHLORIDE 0.9% 1,000 ML IV SCH (23:55)
[2021-02-05 02:45] VITALS: TEMP 97.9
[2021-02-05 08:49] VITALS: BP 122/73; PULSE 57
[2021-02-05] MEDS: CHOLECALCIFEROL 10 MCG (400 IU) TABLET PO SCH (09:21)
[2021-02-05] MEDS: PANTOPRAZOLE 40 MG/10 ML VIAL IV SCH (09:21)
[2021-02-05] MEDS: FAMOTIDINE 20 MG TAB PO SCH (09:21)
[2021-02-05] MEDS: ASCORBIC ACID 500 MG TAB PO SCH (09:21)
[2021-02-05] MEDS: ENOXAPARIN 40 MG/0.4 ML SYRINGE SQ SCH (09:21)
[2021-02-05] MEDS: ZINC SULFATE 220 MG CAP PO SCH (09:21)
[2021-02-05] MEDS: COLCHICINE 0.6 MG EACH PO SCH (09:22)
[2021-02-05] MEDS: LIDOCAINE 5% PATCH TOPICAL SCH (09:22)
--- NOTE | 2021-02-05 13:15 | P.PN ---
Subjective Progress Note Date: 02/05/21 Principal diagnosis: Acute hypoxic respiratory failure secondary to covid 19 pneumonia 50-year-old female, who comes to the emergency room, with complaints of shortness of breath. The patient's been sick for about a week. In addition, the patient has muscle aches, joint aches, weakness, fatigue, and cough. When she coughs, the cough is painful. Currently, she is on 2 L nasal cannula. Her primary care from his physician is Dr. Garrido. Other than fibromyalgia, she really doesn't have much in the way of medical problems. She's not receiving any IV fluids. She does complain of fever and chills as well. No nausea, vomiting, or diarrhea. White count of 7.1, hemoglobin 13, hematocrit 37.5, and platelet count 154,000. PT INR and PTT are normal. D-dimer 0.36. Blood gases show a PaO2 of 1:15, PaCO2 of 23, pH is 7.53. This is consistent with a respiratory alkalosis. This was on 32% oxygen. Sodium 132, potassium 4.1, chlorides 103, CO2 18, with an anion gap of 12, BUN 12, and creatinine 0.74. Chest x-ray shows bilateral patchy lower lobe pneumonia. The patient is seen today 01/31/2021 in follow-up on the regular medical floor. He is currently sitting up in bed. Awake and alert in no acute distress. Currently on 3 L/m per nasal cannula maintaining O2 saturations in the 90s. This is day #2 of Remdesivir. She is also on Decadron, Lovenox, multivitamins, colchicine. Sodium 139. Potassium 4.1. Creatinine 0.54. LDH 714. C-reactive protein 149. Echocardiogram revealed preserved left ventricular systolic function with ejection fraction 60-65%. The patient is seen today 02/01/2021 in follow-up on the regular medical floor. She is currently resting comfortably in bed. Awake and alert in no acute distress. She is still requiring 2 L to maintain O2 saturations in the 90s. Chest x-ray continues to show bilateral patchy infiltrates. This is day #3 of her Remdesivir. She remains on Decadron, Lovenox, vitamin supplements. D-dimer 0.42. LDH 366. C-reactive protein 6.0. She is feeling stronger today, less short of breath. The patient is seen today 02/02/2021 in follow-up on the regular medical floor. This is day #4 of her Remdesivir. She is currently on 3 L nasal cannula to maintain O2 saturations in the 90s. She is still quite fatigued. Continues with a dry nonproductive cough. Dyspnea on exertion. D-dimer 0.38. LDH 353. C-reactive protein 3.5. She remains on Lovenox, Decadron, vitamin supplements. She is also on colchicine. Progress note dated 02/03/2021. 50-year-old female, with a history of fibromyalgia, and acute hypoxemic respiratory failure secondary to COVID 19 pneumonia/pneumonitis. The patient is currently receiving day 5 of REM. She is on 3 L nasal cannula. A chest x-ray was ordered for today. She is feeling a bit better. I did tell her to make sure that while in bed, she has right side down, left side down, supine, and prone positioning. In addition, she should get out of bed and sit up in the chair to help diaphragm function. No labs today. Chest x-ray today does show some improvement when compared to the chest x-ray done on February 01. Progress note dated 02/04/2021. Currently, the patient is doing better. She is been weaned off oxygen. She's completed her REM. The patient could be considered for possible discharge. I'll leave that up to the primary service. Yesterday, she was on 3 L. She was feeling a bit better yesterday as well. I did tell her to move about in bed yesterday. No new lab data today. Chest x-ray from yesterday did reveal improvement in her bilateral infiltrates. Again she's feeling much better. Reevaluated today on 02/05/2021, patient is doing extremely well today, relatively asymptomatic, she is on room air, she finished her full course of REM. I am clearing the patient to be discharged home today. LDH is down to 331 and her C-reactive protein is down to 2.1 from 149 initially Objective - Vital Signs Vital signs: Vital Signs Temp 97.9 F 02/05/21 08:47 Pulse 57 L 02/05/21 08:47 Resp 16 02/05/21 08:47 BP 122/73 02/05/21 08:47 Pulse Ox 95 02/05/21 08:47 Intake & Output 02/04/21 02/05/21 02/05/21 18:59 06:59 18:59 Other: Voiding Method Toilet # Voids 3 2 # Bowel Movements 1 - Exam Physical Exam: Reveals 50-year-old female in no distress. Head: Atraumatic normocephalic. HEENT:[Neck is supple.] [No neck masses.] [No thyromegaly.] [No JVD.] Chest: [Clear throughout, no crackles, no rhonchi, no wheezes.] Cardiac Exam: [Normal S1 and S2, no S3 gallop, no murmur.] Abdomen: [Soft, nontender, no megaly, no rebound, no guarding, normal bowel sounds.] Extremities: [No clubbing, no edema, no cyanosis.] Neurological Exam: [No focal neurologic deficit.] Psychiatric: Normal mood affect and normal mental status examination. Skin: No rashes. - Labs CBC & Chem 7: 01/29/21 20:01 01/30/21 10:52 Assessment and Plan Assessment: Impression: Acute hypoxic respiratory failure secondary to Acute covid 19 pneumonia History of fibromyalgia. History of GERD. Recommendation: Considering the patient is doing well, Considering that she finished her full course of REM. I would recommend that we continue her other Covid 19 cocktail including Decadron and colchicine for the next couple weeks. We will clear the patient to go home today. Follow-up on outpatient basis with me in a couple of weeks. Time with Patient: Less than 30
--- NOTE | 2021-02-06 01:10 | DS ---
DISCHARGE SUMMARY DATE OF SERVICE: 02/05/2021 FINAL DIAGNOSES: 1. Acute bilateral Covid 19 interstitial pneumonia with acute hypoxic respiratory failure. 2. Increased inflammatory markers of Covid 19. 3. History of recurrent syncope. 4. Right lower chest pain possibly pleuritic. 5. Gastroesophageal reflux disease. 6. History of fibromyalgia. 7. History of anxiety, depression. 8. Hyponatremia. DISCHARGE DISPOSITION: The patient will be discharged in stable condition with guarded prognosis. Total time taken: 35 minutes. HISTORY OF PRESENT ILLNESS: This 50-year-old woman with a past medical history of multiple medical problems including Covid 19 pneumonia and multiple other complications as mentioned earlier. The patient treated symptomatically during the hospitalization. The patient was seen by pulmonology as well. Patient improved significantly. Patient is able to ambulate without much of hypoxemia at this time. Most recent chest x-ray reviewed. 2D echo with Doppler was also done during the hospitalization which showed ejection fraction 60% to 65%. On exam, vitals signs stable. Cardiovascular: S1, S2. Abdomen soft. Nontender. Nervous system: No focal deficits. DISCHARGE MEDICATIONS AND INSTRUCTIONS: 1. Diet is cardiac diet. 2. Activity limited until followup. 3. Follow up with Dr. Garrido in 1-2 days. 4. Follow up with Dr. Guthrie and Dr. Logan as recommended. 5. Medications are ibuprofen p.r.n. 6. Tylenol p.r.n. 7. Colcrys 0.6 daily for 10 days. 8. Decadron 6 mg p.o. daily for 10 days. 9. Lidoderm patch as before. 10.Oral zinc 220 mg p.o. daily. 11.Vitamin C 500 mg daily. 12.Vitamin D3 10 mcg p.o. daily. 13.Followup labs. Once again the patient discharged in stable condition with guarded prognosis. MMODL / IJN: [id number] /
== END 2021-02-05 13:00 | disposition home or self-care (01) | DRG 177 ==
LOC: EC 19:06 → 4SSUR 22:26 → 6NMEDSUR 01-30 23:28
PROVIDERS: ADMIT Hospitalist; ATTEND Hospitalist
PROC: XW033E5 Introduction of Remdesivir Anti-infective into Peripheral Vein, Percutaneous Approach, New Technology Group 5 (ICD-10-PCS; principal; 2021-01-29)
DX: U07.1 COVID-19 (principal); J12.82 Pneumonia due to coronavirus disease 2019; J96.01 Acute respiratory failure with hypoxia; E87.3 Alkalosis; E87.1 Hypo-osmolality and hyponatremia; M79.7 Fibromyalgia; Z83.3 Family history of diabetes mellitus; K21.9 Gastro-esophageal reflux disease without esophagitis; F32.9 Major depressive disorder, single episode, unspecified; F41.9 Anxiety disorder, unspecified
CPT/HCPCS: 36415; 36600; 71045; 80048; 80053; 82330; 82607; 82746; 82805; 83605; 83615; 84439; 84443; 84484; 85025; 85379; 85610; 85730; 86140; 87635; 93005; 93306; 99285

== ENCOUNTER → 2021-10-10 | Outpatient (CLI) | payer OTHER ==
--- NOTE | 2021-10-10 16:10 | MR ---
EXAMINATION TYPE: MR lumbar spine wo con DATE OF EXAM: 10/10/2021 COMPARISON: 08/27/2017 HISTORY: Radiculopathy CONTRAST: 0 mL intravenous Gadavist. TECHNIQUE: Multiplanar, multisequence images of the lumbar spine were acquired. FINDINGS: Cord terminates at the L1 level. Foramen are patent. L5-S1: Right paracentral broad-based disc bulge is present. This comes in close approximation with th e right S1 nerve root. No displacement or compression is evident. Findings are stable from comparison . No spinal canal stenosis. No foraminal stenosis. L4-L5: No significant disc bulge or disc herniation. No spinal canal stenosis. No foraminal stenosi s. Disc desiccation is present. L3-L4: No significant disc bulge or disc herniation. No spinal canal stenosis. No foraminal stenosi s. L2-L3: No significant disc bulge or disc herniation. No spinal canal stenosis. No foraminal stenosi s. L1-L2: No significant disc bulge or disc herniation. No spinal canal stenosis. No foraminal stenosi s. T12-L1: No significant disc bulge or disc herniation. No spinal canal stenosis. No foraminal stenos is. IMPRESSION: 1. L5-S1 Disc bulging into the right paracentral region and close approximation of the exiting right S1 nerve root. Correlate with radicular symptoms. Findings are stable from 2017. 2. Mild disc desiccation L4-5. 3. No significant interval changes
== END | disposition home or self-care (01) ==
LOC: RADMRIMAIN 12:39
PROVIDERS: ATTEND Physical Medicine & Rehabilitation
DX: M51.17 Intervertebral disc disorders with radiculopathy, lumbosacral region (principal)
CPT/HCPCS: 72148

== ENCOUNTER 2022-07-26 06:01 | Day surgery (SDC) | payer OTHER ==
[~2022-07-26 06:01] MED LIST: LACTATED RINGERS 1,000 ML IV SCH; LIDOCAINE 1% (10MG/ML) FOR IV START INTRADERMA PRN
[2022-07-26 06:30] VITALS: TEMP 97.9
[2022-07-26] MEDS ORDERED: PROPOFOL 10 MG/ML 20 ML VIAL IV ONE (06:57)
[2022-07-26] MEDS ORDERED: LIDOCAINE 2% INJ 20 MG/ML (2 ML VIAL) ONE (06:57)
--- NOTE | 2022-07-26 07:17 | P.PCN ---
Date of Procedure: 07/26/22 Procedure(s) Performed: Brief history: Patient is a pleasant 52-year-old white female scheduled for an elective upper endoscopy as well as colonoscopy as a part of evaluation of epigastric pain and GERD. She also has family history of colon cancer in the mother was diagnosed at age 60 and maternal uncle at age 65. Her last colonoscopy was 5 years ago. Procedure performed: Esophagogastroduodenoscopy Colonoscopy Preoperative diagnosis: Epigastric pain/GERD Screening for colon cancer and family history of colon cancer Anesthesia: MAC Procedure: After informed consent was obtained from the patient was brought into the endoscopy unit and IV sedation was administered by anesthesia under continuous monitoring. Initially upper endoscopy was done. The Olympus GF 160 video endoscope was inserted inserted into the mouth and esophagus intubated without any difficulty and was gradually advanced into the stomach and duodenum and carefully examined. The bulb and second part of the duodenum appeared normal. The scope was then withdrawn into the stomach adequately insufflated with air and upon careful examination the antrum and body, cardia and fundus appeared normal. The scope was then withdrawn into the esophagus. Small hiatal hernia noted. The GE junction was located at 35 cm to the incisors. It appeared regular with no erythema erosions or ulcerations. Rest of the esophagus appeared normal. Patient tolerated the procedure well. At this time the patient continued to remain sedation. Initial digital rectal examination was normal. Olympus CF 160 video colonoscope was then inserted into the rectum and gradually advanced to the cecum without any difficulty. Careful examination was performed as the scope was gradually being withdrawn. The prep was excellent. The cecum, ascending colon, transverse colon, descending colon, sigmoid colon and rectum appeared normal. Retroflexion was performed in the rectum and no lesions were noted. Patient tolerated the procedure well. Impression: 1. Upper endoscopy revealed small hiatal hernia but no evidence of esophagitis or Ohara's esophagus 2. Colonoscopy was within normal limits with no evidence of colorectal neoplasia Recommendations: Findings of this examination were discussed with the patient as well as her family. She was advised to continue with the Protonix 40 mg daily and follow antireflux measures. Recommend repeat screening colonoscopy in 5 years.
[2022-07-26 07:22] VITALS: RESP 16
[2022-07-26 08:02] VITALS: BP 117/80; PULSE 58
== END 2022-07-26 07:51 | disposition home or self-care (01) ==
LOC: ORWHC2ENDO 06:01
PROVIDERS: ATTEND Internal Medicine Gastroenterology
DX: Z12.11 Encounter for screening for malignant neoplasm of colon (principal); K44.9 Diaphragmatic hernia without obstruction or gangrene; K21.9 Gastro-esophageal reflux disease without esophagitis; E03.9 Hypothyroidism, unspecified; K76.0 Fatty (change of) liver, not elsewhere classified; Z80.0 Family history of malignant neoplasm of digestive organs
CPT/HCPCS: 81025; 45378; 43235; J2704; J2001

== ENCOUNTER → 2022-09-16 | Outpatient (CLI) | payer OTHER ==
--- NOTE | 2022-09-20 01:07 | HM ---
HOLTER MONITOR REPORT The patient was monitored for 48 hours. Baseline rhythm is a sinus mechanism with normal conduction. The average rate is 68 beats per minute, minimum 45, maximum 132 beats per minute. Ventricular ectopic activity was not present. Supraventricular ectopic activity was present in the form of rare single PACs. No diary was available. CONCLUSION: 1. Sinus mechanism, baseline rhythm. 2. No ventricular ectopic activity. 3. Rare supraventricular ectopic activity. 4. No diary was available. MMODL / IJN: [id number] /
== END | disposition home or self-care (01) ==
LOC: RADECHMAIN 08:02
PROVIDERS: ATTEND Family Medicine
DX: R00.2 Palpitations (principal); R07.89 Other chest pain; R23.2 Flushing; R42 Dizziness and giddiness
CPT/HCPCS: 93225; 93226

== ENCOUNTER → 2022-10-25 | Outpatient (CLI) | payer OTHER ==
--- NOTE | 2022-10-25 12:44 | US ---
EXAMINATION TYPE: US carotid duplex BILAT DATE OF EXAM: 10/25/2022 COMPARISON: 08/09/2019 CLINICAL HISTORY: TIA, family history of stroke, palpitations TECHNIQUE: Carotid duplex ultrasound examination. Indirect Doppler criteria was utilized. 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 IMPRESSION: No hemodynamically significant stenosis in either internal carotid artery . No significant change fro m prior. Criteria for Assigning % of Stenosis / Diameter reduction (Estimation based on the indirect measurements of the internal carotid artery velocities (ICA PSV). 1. Normal (no stenosis)=ICA PSV < 125 cm/s: ratio < 2.0: ICA EDV<40 cm/s. 2. Less than 50% stenosis=ICA PSV < 125 cm/s: ratio < 2.0: ICA EDV<40 cm/s. 3. 50 to 69% stenosis=ICA PSV of 125 to 230 cm/s: ration 2.0 ? 4.0: ICA EDV 40-100 cm/s. 4. Greater than 70% stenosis to near occlusion= ICA PSV > 230 cm/s: ratio > 4.0: ICA EDV > 100 cm/s. 5. Near occlusion= ICA PSV velocities may be low or undetectable: variable ratio and ICA EDV. 6. Total occlusion=unable to detect flow.
--- NOTE | 2022-10-25 13:42 | CT ---
EXAMINATION TYPE: CT angio head DATE OF EXAM: 10/25/2022 COMPARISON: None HISTORY: Syncopal episode and dizziness. CT DLP: 2240 mGycm CONTRAST: CTA [place] with 3-D reconstruction is performed and without and with IV Contrast, patient i njected with 100ml mL of Isovue 370. Contrast CTA of the [place] was performed 3-D reconstruction imaging obtained at a separate workstation. Vertebrobasilar system as well as intracranial portions of the internal carotid arterie s and their major tributaries are patent. I do not see evidence for sizable aneurysm or vascular mal formation. Please note MRI provides greater sensitivity and specificity. Visualized brain appears g rossly unremarkable. IMPRESSION: No evidence for sizable aneurysm or vascular malformation.
== END | disposition home or self-care (01) ==
LOC: RADUSWWP 12:11
PROVIDERS: ATTEND Family Medicine
DX: R00.2 Palpitations (principal); I10 Essential (primary) hypertension; G45.9 Transient cerebral ischemic attack, unspecified; R42 Dizziness and giddiness; Z82.3 Family history of stroke
CPT/HCPCS: 93880; 70496; Q9967

== ENCOUNTER 2023-04-22 15:29 | Emergency (ER) | payer OTHER ==
[2023-04-22 15:37] VITALS: PULSE 76; RESP 18
--- NOTE | 2023-04-22 17:35 | ED ---
Abdominal Pain HPI - General Chief Complaint: Abdominal Pain Stated Complaint: abd pain Time Seen by Provider: 04/22/23 17:24 Source: patient Mode of arrival: ambulatory Limitations: no limitations - History of Present Illness Initial Comments: 's patient is a 53-year-old woman who presents with right lower quadrant pain that had come on proximally 3-4 hours ago while she was working around her yard. She describes it as aching, constant. She has not noted worsening or relieving factors. No other associated symptoms. Patient's last bowel movement was in the morning and was normal. No change in urination. She has not had periods in four years since uterine ablation. MD Complaint: abdominal pain Onset/Timin -: hour(s) Location: RLQ Radiation: R flank Migration to: no migration Severity: moderate Quality: aching Consistency: constant Improves With: nothing Worsens With: nothing Associated Symptoms: denies other symptoms - Related Data LMP (females 10-50): other Patient : No Home Medications Medication Instructions Recorded Confirmed Lidocaine 5% Patch [Lidoderm 5% 1 patch TOPICAL DAILY PRN 07/25/22 07/25/22 Patch] Pantoprazole [Protonix] 40 mg PO DAILY 07/25/22 07/25/22 Previous Rx's Medication Instructions Recorded Ascorbic Acid [Vitamin C] 500 mg PO DAILY #30 tab 02/05/21 Cholecalciferol [Vitamin D3 (10 10 mcg PO DAILY #30 tablet 02/05/21 Mcg = 400 Iu)] Zinc Sulfate [Orazinc] 220 mg PO DAILY #30 cap 02/05/21 Allergies Allergy/AdvReac Type Severity Reaction Status Date / Time No Known Allergies Allergy Verified 07/25/22 13:25 Review of Systems ROS Statement: Those systems with pertinent positive or pertinent negative responses have been documented in the HPI. ROS Other: All systems not noted in ROS Statement are negative. Constitutional: Denies: fever, chills Respiratory: Denies: cough, dyspnea Cardiovascular: Denies: chest pain, palpitations, edema Gastrointestinal: Reports: abdominal pain. Denies: nausea, vomiting, diarrhea, constipation Genitourinary: Denies: dysuria, frequency, hematuria Musculoskeletal: Denies: back pain Skin: Denies: rash Neurological: Denies: headache, weakness, numbness Past Medical History Past Medical History: Fibromyalgia, GERD/Reflux, Liver Disease, Thyroid Disorder Additional Past Medical History / Comment(s): hx of dysfunctional uterine bleeding, hypothyroid, fatty liver, cold sores- on lips when pressure applied at dentist, family hx of colon cancer History of Any Multi-Drug Resistant Organisms: None Reported Past Surgical History: Section Additional Past Surgical History / Comment(s): colonoscopy, ablation Past Anesthesia/Blood Transfusion Reactions: Postoperative Nausea & Vomiting (PONV) Past Psychological History: No Psychological Hx Reported Smoking Status: Former smoker Past Alcohol Use History: Occasional Past Drug Use History: Marijuana - Past Family History Father Family Medical History: Diabetes Mellitus Additional Family Medical History / Comment(s): ALS Mother Family Medical History: Cancer, CVA/TIA, Diabetes Mellitus Additional Family Medical History / Comment(s): colon cancer Sister(s) Family Medical History: CVA/TIA Additional Family Medical History / Comment(s): TIA General Exam Limitations: no limitations General appearance: alert, in no apparent distress Head exam: Present: atraumatic, normocephalic Eye exam: Present: normal appearance. Absent: scleral icterus, conjunctival injection Neck exam: Present: normal inspection Respiratory exam: Present: normal lung sounds bilaterally. Absent: respiratory distress, wheezes, rales, rhonchi, stridor Cardiovascular Exam: Present: regular rate, normal rhythm, normal heart sounds. Absent: systolic murmur, diastolic murmur, rubs, gallop GI/Abdominal exam: Present: soft, tenderness. Absent: distended, guarding, rebound, rigid, mass, pulsatile mass Extremities exam: Present: normal inspection, normal capillary refill. Absent: pedal edema, calf tenderness Back exam: Present: normal inspection. Absent: CVA tenderness (R), CVA tenderness (L) Neurological exam: Present: alert Skin exam: Present: warm, dry, intact, normal color. Absent: rash Course Vital Signs 04/22/23 04/22/23 15:35 19:46 Temperature 97.5 F L 97.7 F Pulse Rate 76 76 Respiratory 18 18 Rate Blood Pressure 155/105 142/90 O2 Sat by Pulse 99 98 Oximetry Medical Decision Making - Medical Decision Making This patient is a 53-year-old woman here to be evaluated for abdominal pain. She did have labs and was feeling better on reevaluation. We discussed appropriate further care and follow-up as well as return parameters. Was pt. sent in by a medical professional or institution ([facility], [facility], urgent care, hospital, or assisted...) When possible be specific @ -[No] Did you speak to anyone other than the patient for history (EMS, parent, family, police, friend...)? What history was obtained from this source @ -[No] Did you review nursing and triage notes (agree or disagree)? Why? @ -[I reviewed and agree with nursing and triage notes] Were old charts reviewed (outside hosp., previous admission, EMS record, old EKG, old radiological studies, urgent care reports/EKG's, assisted records)? Report findings @ -[No old charts were reviewed] Differential Diagnosis (chest pain, altered mental status, abdominal pain women, abdominal pain men, vaginal bleeding, weakness, fever, dyspnea, syncope, headache, dizziness, GI bleed, back pain, seizure, CVA, palpatations, mental health, musculoskeletal)? @ -[Differential Abdominal Pain Women: Appendicitis, Cholecystitis, diverticulosis, ischemic bowel, pancreatitis, hepatitis, UTI, gastroenteritis, AAA, incarcerated hernia, bowel obstruction, constipation, inflammatory bowel, hepatitis, peptic ulcer disease, splenic infar ction, perforated viscus, vulvitis, ovarian torsion, PID, kidney stone, placenta abruption, this is not meant to be an all-inclusive list EKG interpreted by me (3pts min.). @ -[As above] X-rays interpreted by me (1pt min.). @ -[None done] CT interpreted by me (1pt min.). @ -[None done] U/S interpreted by me (1pt. min.). @ -[None done] What testing was considered but not performed or refused? (CT, X-rays, U/S, labs)? Why? @ -[None] What meds were considered but not given or refused? Why? @ -[None] Did you discuss the management of the patient with other professionals (professionals i.e. [facility], F[facility]ING [facility]ENER, lab, RT, psych nurse, group social worker, pcu rn, teacher, access control officer, caser)? Give summary @ -[No] Was smoking cessation discussed for >3mins.? @ -[No] Was critical care preformed (if so, how long)? @ -[No] Were there social determinants of health that impacted care today? How? (Homelessness, low income, unemployed, alcoholism, drug addiction, transportation, low edu. Level, literacy, decrease access to med. care, prison, rehab)? @ -[No] Was there de-escalation of care discussed even if they declined (Discuss DNR or withdrawal of care, Hospice)? DNR status @ -[No] What co-morbidities impacted this encounter? (DM, HTN, Smoking, COPD, CAD, Cancer, CVA, ARF, Chemo, Hep., AIDS, mental health diagnosis, sleep apnea, morbid obesity)? @ -[None] Was patient admitted / discharged? Hospital course, mention meds given and route, prescriptions, significant lab abnormalities, going to OR and other pertinent info. @ -[Patient is feeling better and is stable for discharge with strict return parameters Undiagnosed new problem with uncertain prognosis? @ -[No] Drug Therapy requiring intensive monitoring for toxicity (Heparin, Nitro, Insul in, Cardizem)? @ -[No] Were any procedures done? @ -[No] Diagnosis/symptom? @ -[Acute abdominal pain, uncomplicated Acute, or Chronic, or Acute on Chronic? @ -[default] Uncomplicated (without systemic symptoms) or Complicated (systemic symptoms)? @ -[default] Side effects of treatment? @ -[No] Exacerbation, Progression, or Severe Exacerbation? @ -[No] Poses a threat to life or bodily function? How? (Chest pain, [place], [place], pneumonia, PE, COPD, DKA, ARF, appy, cholecystitis, CVA, Diverticulitis, Homicidal, Suicidal, threat to staff... and all critical care pts) @ -[No] - Lab Data Result diagrams: 04/22/23 18:04 04/22/23 18:04 Lab Results 04/22/23 04/22/23 04/22/23 Range/Units 18:04 18:04 18:04 WBC 8.2 (3.8-10.6) k/uL RBC 4.38 (3.80-5.40) m/uL Hgb 13.3 (11.4-16.0) gm/dL Hct 39.8 (34.0-46.0) % MCV 90.7 (80.0-100.0) fL MCH 30.4 (25.0-35.0) pg MCHC 33.5 (31.0-37.0) g/dL RDW 13.5 (11.5-15.5) % Plt Count 240 (150-450) k/uL MPV 8.8 Neutrophils % 50 % Lymphocytes % 40 % Monocytes % 5 % Eosinophils % 3 % Basophils % 1 % Neutrophils # 4.1 (1.3-7.7) k/uL Lymphocytes # 3.3 (1.0-4.8) k/uL Monocytes # 0.4 (0-1.0) k/uL Eosinophils # 0.2 (0-0.7) k/uL Basophils # 0.1 (0-0.2) k/uL Sodium 142 (137-145) mmol/L Potassium 4.0 (3.5-5.1) mmol/L Chloride 110 H (98-107) mmol/L Carbon Dioxide 22 (22-30) mmol/L Anion Gap 10 mmol/L BUN 14 (7-17) mg/dL Creatinine 0.89 (0.52-1.04) mg/dL Est GFR (CKD-EPI)AfAm 86 (>60 ml/min/1.73 sqM) Est GFR (CKD-EPI)NonAf 75 (>60 ml/min/1.73 sqM) Glucose 98 (74-99) mg/dL Calcium 9.3 (8.4-10.2) mg/dL Total Bilirubin 0.4 (0.2-1.3) mg/dL AST 33 (14-36) U/L ALT 30 (4-34) U/L Alkaline Phosphatase 112 (38-126) U/L C-Reactive Protein 0.5 (<1.0) mg/dL Total Protein 7.9 (6.3-8.2) g/dL Albumin 4.6 (3.5-5.0) g/dL Amylase 58 (30-110) U/L Lipase 128 (23-300) U/L Urine Color Yellow Urine Appearance Cloudy H (Clear) Urine pH 5.5 (5.0-8.0) Ur Specific [place] 1.030 (1.001-1.035) Urine Protein Trace H (Negative) Urine Glucose (UA) Negative (Negative) Urine Ketones Negative (Negative) Urine Blood Negative (Negative) Urine Nitrite Negative (Negative) Urine Bilirubin Negative (Negative) Urine Urobilinogen 2.0 (<2.0) mg/dL Ur Leukocyte Esterase Moderate H (Negative) Urine RBC 1 (0-5) /hpf Urine WBC 2 (0-5) /hpf Ur Squamous Epith Cells 13 H (0-4) /hpf Urine Bacteria Rare H (None) /hpf Urine Mucus Moderate H (None) /hpf Disposition Clinical Impression: Abdominal pain Disposition: HOME SELF-CARE Condition: Good Instructions (If sedation given, give patient instructions): Abdominal Pain (ED) Is patient prescribed a controlled substance at d/c from ED?: No Referrals: Zurdo Garrido DO [Primary Care Provider] - 1-2 days
[2023-04-22 18:20] LABS: Basophils # (A) 0.1 k/uL (0-0.2); Basophils % (A) 1 %; Eosinophils # (A) 0.2 k/uL (0-0.7); Eosinophils % (A) 3 %; HCT 39.8 % (34.0-46.0); HGB 13.3 gm/dL (11.4-16.0); Lymphocytes # (A) 3.3 k/uL (1.0-4.8); Lymphocytes % (A) 40 %; MCH 30.4 pg (25.0-35.0); MCHC 33.5 g/dL (31.0-37.0); MCV 90.7 fL (80.0-100.0); Mean Platelet Volume 8.8; Monocytes # (A) 0.4 k/uL (0-1.0); Monocytes % (A) 5 %; Neutrophils # (A) 4.1 k/uL (1.3-7.7); Neutrophils % (A) 50 %; Platelet Count 240 k/uL (150-450); RBC 4.38 m/uL (3.80-5.40); RDW 13.5 % (11.5-15.5); WBC 8.2 k/uL (3.8-10.6)
[2023-04-22 18:30] LABS: Appearance,Urine Cloudy (Clear); Bacteria,Urine Rare /hpf; Bilirubin,Urine Negative (Negative); Blood,Urine Negative (Negative); Color,Urine Yellow; Glucose,Urine (UA) Negative (Negative); Ketones,Urine Negative (Negative); Leukocyte Esterase,Urine Moderate (Negative); Mucus,Urine Moderate /hpf; Nitrite,Urine Negative (Negative); PH, Urine 5.5 (5.0-8.0); Protein,Urine Trace (Negative); RBC,Urine 1 /hpf (0-5); Squamous Epithelial Cell,Urine 13 /hpf (0-4); WBC,Urine 2 /hpf (0-5)
[2023-04-22 18:53] LABS: ALT 30 U/L (4-34); AST 33 U/L (14-36); African American GFR (CKD) 86 (>60 ml/min/1.73 sqM); Albumin 4.6 g/dL (3.5-5.0); Alkaline Phosphatase 112 U/L (38-126); Amylase 58 U/L (30-110); Anion Gap 10 mmol/L; Blood Urea Nitrogen 14 mg/dL (7-17); C Reactive Protein 0.5 mg/dL (<1.0); Calcium 9.3 mg/dL (8.4-10.2); Carbon Dioxide 22 mmol/L (22-30); Chloride 110 mmol/L (98-107); Glucose 98 mg/dL (74-99); Lipase 128 U/L (23-300); Non-African American GFR(CKD) 75 (>60 ml/min/1.73 sqM); Sodium 142 mmol/L (137-145); Total Bilirubin 0.4 mg/dL (0.2-1.3); Total Protein 7.9 g/dL (6.3-8.2)
[2023-04-22 19:56] VITALS: BP 142/90; TEMP 97.7
== END 2023-04-22 19:57 | disposition home or self-care (01) ==
LOC: EC 15:29
DX: R10.9 Unspecified abdominal pain (principal); K21.9 Gastro-esophageal reflux disease without esophagitis; Z87.891 Personal history of nicotine dependence; F12.90 Cannabis use, unspecified, uncomplicated; Z79.899 Other long term (current) drug therapy
CPT/HCPCS: 36415; 80053; 81001; 82150; 83690; 85025; 86140; 99284

== ENCOUNTER → 2023-05-14 | Outpatient (CLI) | payer OTHER ==
[2023-05-15 00:42] LABS: T4, Free (Free Thyroxine) 1.1 ng/dL (0.80-1.80)
[2023-05-15 02:10] LABS: ACTH 16.5 pg/mL (0.00-45.99)
--- NOTE | 2023-05-15 10:42 | NM ---
EXAMINATION TYPE: NM thyroid image w uptake DATE OF EXAM: 05/15/2023 COMPARISON: NONE CLINICAL INDICATION: Female, 53 years old with history of R23.2 R00.2 E05.90; TECHNIQUE: Thyroid iodine uptake is calculated and images performed after the oral administration of 296 uCi 1-123 Capsule. FINDINGS: There is normal distribution of activity throughout the gland. The 4 hour iodine uptake is calculated at 9.3% (normal range 8-14%). The 24-hour iodine uptake is calculated at 20% (normal rang e 15-35%). IMPRESSION: 1. Mild heterogeneous uptake involving the upper pole right kidney recommend ultrasound to exclude sm all cold nodule. 2. Uptake is at the lower limits of normal..
== END | disposition home or self-care (01) ==
LOC: RADNMMAIN 09:42
PROVIDERS: ATTEND Internal Medicine Endocrinology, Diabetes & Metabolism
DX: E05.90 Thyrotoxicosis, unspecified without thyrotoxic crisis or storm (principal); R93.429 Abnormal radiologic findings on diagnostic imaging of unspecified kidney; R23.2 Flushing; R00.2 Palpitations
CPT/HCPCS: 78014; 82024; 84260; 84439; 84443; 84480

== ENCOUNTER → 2023-05-22 | Outpatient (CLI) | payer OTHER | END | disposition home or self-care (01) | LOC: LABWHC1 12:39 | PROVIDERS: ATTEND Internal Medicine Endocrinology, Diabetes & Metabolism | DX: R23.2 Flushing (principal) | CPT/HCPCS: 36415; 83036; 83835; 86376; 86698 ==

== ENCOUNTER → 2024-10-06 | Outpatient (CLI) | payer OTHER ==
--- NOTE | 2024-10-06 22:01 | MR ---
EXAMINATION TYPE: MR lumbar spine wo con DATE OF EXAM: 10/06/2024 COMPARISON: MRI lumbar spine October 10, 2021 HISTORY: Low back pain into both sides TECHNIQUE: Multiplanar, multisequence imaging of the lumbar spine is performed without IV contrast. FINDINGS: Sagittal images of the lumbar spine show vertebral body heights and alignment to appear sta ble and satisfactory. Disc desiccation at L4-L5 and L5-S1 levels is redemonstrated. Mild disc space n arrowing at L5-S1 level again seen . The conus medullaris remains normal in position and signal endin g at superior L1 level. The bone marrow signal intensity is within normal limits. Axial images show T12-L1 through L3-L4 levels remain within normal limits. Axial images at L4-L5 level redemonstrated posterior annular tear. Spinal canal is preserved. Axial images at L5-S1 level redemonstrate focal right paracentral disc herniation with slight superio r extrusion but the spinal canal is preserved. Bilateral neural foramina are patent. Disc herniation slightly more prominent versus prior. Paraspinal muscle bulk is maintained. IMPRESSION: Slightly more prominent disc herniation at the lumbosacral junction but spinal canal hayden ins preserved and no definitive new nerve root effacement is seen. [facility], , 10/06/2024 9:59 PM
== END | disposition home or self-care (01) ==
LOC: RADMRIMAIN 09-06 21:15
PROVIDERS: ATTEND Family Medicine
DX: M51.360 Other intervertebral disc degeneration, lumbar region with discogenic back pain only (principal); M99.73 Connective tissue and disc stenosis of intervertebral foramina of lumbar region
CPT/HCPCS: 72148